=== PATIENT | male | born 1945 | race Hispanic/Latino ===

== ENCOUNTER 2018-06-14 18:43 | Emergency (ER) | payer MEDICARE, SELFPAY ==
[2018-06-14] VITALS (7 sets, daily range): BP systolic 142–159; BP diastolic 102–126; PULSE 90–118; RESP 11–32; TEMP 36.6; O2SAT 90–99
--- NOTE | 2018-06-14 18:55 | DI.CT.S_ITS ---
PROCEDURE: CT CHEST ABD PEL WO CON INDICATIONS: severe abdominal pain TECHNIQUE: After the administration of oral contrast, 5 mm thick sections acquired from the lung apices to the symphysis pubis. 5 mm thick coronal and sagittal reformats acquired, with additional 7 mm coronal MIP reformats through the lungs. For radiation dose reduction, the following was used: automated exposure control, adjustment of mA and/or kV according to patient size. COMPARISON: None. FINDINGS: Image quality: Excellent. CHEST: Lungs and pleura: No acute pulmonary opacities. No pleural effusions or pneumothorax. Central and peripheral airways are patent are normal in caliber. Mediastinum: Heart size is enlarged No pericardial effusion. No mediastinal adenopathy by CT size criteria. Thoracic aorta and central pulmonary arteries are normal in size. Esophagus is normal in caliber. No hiatal hernia. Chest wall: No axillary or supraclavicular adenopathy by size criteria. Thyroid gland is unremarkable. ABDOMEN: Solid organs: Liver is normal in size. Gallbladder has been removed. Pancreas is normal in contours. Spleen is normal in size. No adrenal nodules. Both kidneys are atrophic without hydronephrosis or nephrolithiasis. Peritoneum and bowel: Small and large bowel loops are nonobstructive. No free fluid or air. Significant colonic diverticula are present without surrounding inflammatory change. There is mild thickening of the sigmoid colon without surrounding inflammatory change. Nodes and vessels: No retroperitoneal or mesenteric adenopathy by size criteria. Aorta and inferior vena cava are normal in size. Aorta does demonstrate ectasia with prominent wall calcifications consistent with atherosclerosis. The common iliac arteries are prominent the largest on the left measuring 16 mm in transverse dimension. Miscellaneous: No ventral hernias. PELVIS: Genitourinary: Bladder wall thickness is normal. Prostate gland is enlarged. Miscellaneous: Fat-containing inguinal hernias are present. Bones: No suspicious bony lesions. No vertebral body compression fractures. IMPRESSION: 1. Significant colonic diverticula. There is mild appearance of thickening within the sigmoid colon which could be chronic as there is no associated inflammatory change. Early diverticulitis cannot be definitively excluded. 2. No nephro or ureterolithiasis. 3. Aortic atherosclerotic disease is present. Dictated by: Estefani Araya M.D. on 06/14/2018 at 21:45 Approved by: Estefani Araya M.D. on 06/14/2018 at 21:53
--- NOTE | 2018-06-14 19:08 | ED_ITS ---
HPI - Abdominal Pain General Chief Complaint: Abdominal Pain Stated Complaint: Lower abd pain Time Seen by Provider: 06/14/18 18:55 Source: patient and EMS Mode of arrival: EMS History of Present Illness HPI narrative: Patient is a 72-year-old male presenting with severe low lower abdominal pain and back pain. He is from a memory care [facility] and is a poor historian. But he apparently was eating a cheeseburger and fries when the pain started. He appears to be in AFib with RVR, he has a history of atrial fibrillation. He cannot find a comfortable position of complaining of pain on both sides of his back. It appears very uncomfortable. He was seen and admitted at [facility] who discharged on 06/09/2018 , for atrial fibrillation with RVR. According to records he has a history of CVA with a station an advanced dementia. MD complaint: abdominal pain and flank pain Related Data Home Medications Medication Instructions Recorded Confirmed amlodipine [Norvasc] 5 mg PO QDAY #0 10/21/16 aspirin [Ecotrin] 325 mg PO QDAY #0 02/05/18 calcitriol [Rocaltrol] 0.25 mcg PO QDAY #0 02/05/18 furosemide 20 mg PO QDAY #0 02/05/18 metoprolol succinate [Toprol XL] 100 mg PO QDAY #0 02/05/18 Previous Rx's Medication Instructions Recorded carvedilol [Coreg] 12.5 mg PO BID #60 tab 10/22/16 ferrous sulfate [Iron (ferrous 325 mg PO QDAY #30 tab 10/01/17 sulfate)] Allergies Allergy/AdvReac Type Severity Reaction Status Date / Time Penicillins [PENICILLINS] Allergy Severe I SWELL Verified 06/14/18 20:16 UP WITH RASHES, IT'S NASTY Review of Systems Review of Systems Limited due to patient's dementia Constitutional Denies chills, Denies fever(s), Denies lethargy and Denies weakness Cardiovascular Denies chest pain, Denies irregular heart rhythm, Denies lightheadedness, Denies palpitations, Denies dyspnea, Denies dyspnea on exertion and Denies orthopnea Respiratory Denies cough, Denies dyspnea, Denies dyspnea on exertion and Denies wheezing Musculoskeletal Denies back pain, Denies muscle weakness, Denies numbness and Denies tingling Integumentary/Breasts Denies pruritus, Denies erythema, Denies rash and Denies wounds Neurologic Denies numbness, Denies tingling and Denies weakness Endocrine Denies palpitations Allergic/Immunologic Denies wheezing PFSH Medical History Aphasia (Acute) Atrial fibrillation (Acute) CHF (congestive heart failure) (Acute) CVA (cerebral vascular accident) (Acute) Cardiomyopathy (Acute) Kidney disease (Acute) Surgical History Status post appendectomy (Acute) Status post cholecystectomy (Acute) Social History housing: assisted living facility Exam Initial Vital Signs Initial Vital Signs: Vital Signs Temperature 98 F 06/14/18 19:04 Pulse Rate 90 06/14/18 19:04 Respiratory Rate 32 H 06/14/18 19:04 Blood Pressure 149/126 H 06/14/18 19:04 Pulse Oximetry 90 L 06/14/18 19:04 GENERAL: Elderly male appears in severe pain awake and alert holding his lower abdomen. HEENT: Head atraumatic,EOMI, pupils reactive, neck is supple, no JVD CARDIOVASCULAR: Regular rate and rhythm without murmurs, rubs or gallops. RESPIRATORY: Breath sounds equal bilaterally, no wheezes rales or rhonchi. ABDOMEN: Soft, nontender. Normoactive bowel sounds all 4 quadrants. No guarding or rebound. Scars noted on abdomen : Mild bilateral CVA tenderness EXTREMITIES: Normal range of motion, no clubbing or edema. Neurovascularly intact NEUROLOGICAL: Awake and alert, difficult to understand at times. Moving all extremities SKIN: Warm, dry, no laceration, no petechiae, no rashes or lesions. Course Orders Ordered: ED Orders 06/14/18 18:55 CT chest abd pel wo con Stat EKG-12 Lead Stat 06/14/18 19:50 Complete Blood Count AUTO DIFF Stat Comprehensive Metabolic Panel Stat Lipase Stat Partial Thromboplastin Time Stat Prothrombin Time INR Stat Troponin & CK Cardiac Panel Stat 06/15/18 00:08 Troponin I Stat Discontinued Medications Carvedilol (Coreg) 12.5 mg PO NOW ONE Stop: 06/14/18 23:13 Last Admin: 06/15/18 00:19 Dose: 12.5 mg Sodium Chloride (Normal Saline 0.9%) 1,000 mls @ 150 mls/hr IV CONT EDGAR Last Infusion: 06/15/18 00:52 Dose: 0 mls/hr Infusion: 06/15/18 00:20 Dose: 0 mls/hr Admin: 06/14/18 19:16 Dose: 150 mls/hr Ketorolac Tromethamine (Toradol) 15 mg IV NOW ONE Stop: 06/14/18 18:56 Last Admin: 06/14/18 19:14 Dose: 15 mg Metoprolol Tartrate (Lopressor) 5 mg IV NOW ONE Stop: 06/14/18 22:42 Last Admin: 06/14/18 23:07 Dose: 5 mg Morphine Sulfate (Morphine) 2 mg IV NOW ONE Stop: 06/14/18 18:56 Last Admin: 06/14/18 19:14 Dose: 2 mg Morphine Sulfate (Morphine) 2 mg IV NOW ONE Stop: 06/14/18 20:45 Last Admin: 06/14/18 20:51 Dose: 2 mg Ondansetron HCl (Zofran) 4 mg IV NOW ONE Stop: 06/14/18 18:56 Last Admin: 06/14/18 19:14 Dose: 4 mg Vital Signs - 8 hr 06/14/18 20:04 06/14/18 21:55 06/14/18 22:07 Temperature Pulse Rate 118 H 93 H 101 H Respiratory Rate 11 L 26 H 20 Blood Pressure Blood Pressure [Right Arm] 159/111 H 142/118 H 151/102 H Pulse Oximetry 99 06/14/18 22:57 06/14/18 23:15 06/15/18 00:19 Temperature Pulse Rate 97 H 98 H 102 H Respiratory Rate 18 18 Blood Pressure 148/118 H Blood Pressure [Right Arm] 158/118 H 156/111 H Pulse Oximetry 96 06/15/18 02:13 Temperature 98.2 F Pulse Rate 101 H Respiratory Rate 21 Blood Pressure 135/96 H Blood Pressure [Right Arm] Pulse Oximetry 95 MDM - Abdominal Pain Medical Records Attestation: I reviewed the patient's medical records. Lab Data Attestation: I reviewed the patient's lab results. Result diagrams: 06/14/18 19:50 06/14/18 19:50 Lab Results 06/14/18 06/14/18 06/14/18 Range/Units 19:50 19:50 19:50 WBC 7.2 (4.5-11.0) X10^3/uL RBC 4.20 L (4.5-5.9) X10^6/uL Hgb 13.7 (13.5-17.5) g/dL Hct 40.9 L (41-53) % MCV 97.3 (80-100) fL MCH 32.6 (26-34) PG MCHC 33.5 (30-36) % RDW 16.3 H (11.6-14.8) % Plt Count 192 (150-400) X10^3/uL Neut % (Auto) 75.1 H (50-75) % Lymph % (Auto) 15.0 L (25-40) % [place] % (Auto) 8.0 (3-14) % Eos % (Auto) 1.1 L (2-4) % Baso % (Auto) 0.8 (0-2) % Neut # (Auto) 5400 (3182-4080) /uL PT 18.1 H (10.1-12.7) SECONDS INR 1.6 H (0.9-1.3) APTT 25 L (26.4-36.2) SECONDS Sodium 139 (137-145) mmol/L Potassium 5.1 (3.4-5.1) mmol/L Chloride 103 (98-107) mmol/L Carbon Dioxide 23 (22-32) mmol/L BUN 46 H (9-20) mg/dL Creatinine 2.20 H (0.66-1.25) mg/dL Estimated GFR 29.7 L (>60) mL/min BUN/Creatinine Ratio 20.9 (6-22) Glucose 137 H (80-110) mg/dL Calcium 9.6 (8.4-10.2) mg/dL Total Bilirubin 2.0 H (0.2-1.3) mg/dL AST 32 (17-59) IU/L ALT 33 (21-72) IU/L Alkaline Phosphatase 69 (38-126) U/L Total Creatine Kinase 46 L (55-170) U/L Troponin I 0.039 H (0.01-0.034) ng/mL Total Protein 7.2 (6.3-8.2) g/dL Albumin 4.0 (3.5-5.0) g/dL Globulin 3.2 (1.7-4.1) g/dL Albumin/Globulin Ratio 1.3 (1.0-2.8) Lipase 58 (23-300) U/L 06/15/18 Range/Units 00:08 WBC (4.5-11.0) X10^3/uL RBC (4.5-5.9) X10^6/uL Hgb (13.5-17.5) g/dL Hct (41-53) % MCV (80-100) fL MCH (26-34) PG MCHC (30-36) % RDW (11.6-14.8) % Plt Count (150-400) X10^3/uL Neut % (Auto) (50-75) % Lymph % (Auto) (25-40) % [place] % (Auto) (3-14) % Eos % (Auto) (2-4) % Baso % (Auto) (0-2) % Neut # (Auto) (0075-5865) /uL PT (10.1-12.7) SECONDS INR (0.9-1.3) APTT (26.4-36.2) SECONDS Sodium (137-145) mmol/L Potassium (3.4-5.1) mmol/L Chloride (98-107) mmol/L Carbon Dioxide (22-32) mmol/L BUN (9-20) mg/dL Creatinine (0.66-1.25) mg/dL Estimated GFR (>60) mL/min BUN/Creatinine Ratio (6-22) Glucose (80-110) mg/dL Calcium (8.4-10.2) mg/dL Total Bilirubin (0.2-1.3) mg/dL AST (17-59) IU/L ALT (21-72) IU/L Alkaline Phosphatase (38-126) U/L Total Creatine Kinase (55-170) U/L Troponin I 0.037 H (0.01-0.034) ng/mL Total Protein (6.3-8.2) g/dL Albumin (3.5-5.0) g/dL Globulin (1.7-4.1) g/dL Albumin/Globulin Ratio (1.0-2.8) Lipase (23-300) U/L Imaging Data CT chest abdomen pelvis no contrast: Radiologist's impression: PROCEDURE: CT CHEST ABD PEL WO CON INDICATIONS: severe abdominal pain TECHNIQUE: After the administration of oral contrast, 5 mm thick sections acquired from the lung apices to the symphysis pubis. 5 mm thick coronal and sagittal reformats acquired, with additional 7 mm coronal MIP reformats through the lungs. For radiation dose reduction, the following was used: automated exposure control, adjustment of mA and/or kV according to patient size. COMPARISON: None. FINDINGS: Image quality: Excellent. CHEST: Lungs and pleura: No acute pulmonary opacities. No pleural effusions or pneumothorax. Central and peripheral airways are patent are normal in caliber. Mediastinum: Heart size is enlarged No pericardial effusion. No mediastinal adenopathy by CT size criteria. Thoracic aorta and central pulmonary arteries are normal in size. Esophagus is normal in caliber. No hiatal hernia. Chest wall: No axillary or supraclavicular adenopathy by size criteria. Thyroid gland is unremarkable. ABDOMEN: Solid organs: Liver is normal in size. Gallbladder has been removed. Pancreas is normal in contours. Spleen is normal in size. No adrenal nodules. Both kidneys are atrophic without hydronephrosis or nephrolithiasis. Peritoneum and bowel: Small and large bowel loops are nonobstructive. No free fluid or air. Significant colonic diverticula are present without surrounding inflammatory change. There is mild thickening of the sigmoid colon without surrounding inflammatory change. Nodes and vessels: No retroperitoneal or mesenteric adenopathy by size criteria. Aorta and inferior vena cava are normal in size. Aorta does demonstrate ectasia with prominent wall calcifications consistent with atherosclerosis. The common iliac arteries are prominent the largest on the left measuring 16 mm in transverse dimension. Miscellaneous: No ventral hernias. PELVIS: Genitourinary: Bladder wall thickness is normal. Prostate gland is enlarged. Miscellaneous: Fat-containing inguinal hernias are present. Bones: No suspicious bony lesions. No vertebral body compression fractures. IMPRESSION: 1. Significant colonic diverticula. There is mild appearance of thickening within the sigmoid colon which could be chronic as there is no associated inflammatory change. Early diverticulitis cannot be definitively excluded. 2. No nephro or ureterolithiasis. 3. Aortic atherosclerotic disease is present. Dictated by: Estefani Araya M.D. on 06/14/2018 at 21:45 ECG Data Attestation: I personally reviewed and interpreted this ECG as follows: Prior ECG tracings: available for review Interpretation: AFib with RVR rate 136 similar to previous EKG MDM Narrative Medical decision making narrative: The patient initially appears quite uncomfortable he is in AFib with RVR. Concern for possible dissection. Though he does have a history of renal disease. I discussed with Dr. 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 At this time she recommends CT without contrast if there is large dissection should be able to see something. And if needed contrast afterwards or there is still high concern then we can do contrast. Patient's pain begins to get under control. He becomes more comfortable. I discussed his results with Radiology. He does have some calcifications in his aorta no obvious abnormality or sign of dissection. No kidney stones. The patient is given 1 dose of Lopressor and his nightly dose of Coreg to help control his AFib which does seem to help. Rate decreased between 90 and 100. Patient overall is calm and cooperative no longer seems to be in pain. Patient has had 2-troponins while in the ED. Attempted to call both of his daughters, the numbers in [employer] at this hospital are incorrect and no longer in service. However I did call and leave a message for Yuni her number was [phone] I called and spoke with staffing who is familiar with him at the [facility] and [place], he sounds as though he is at baseline mental status. No true abnormality or infection is found. Patient will be discharged back to the facility by BLS. Discharge Plan Departure Patient Disposition: Assisted Living Clinical Impression: Atrial fibrillation with RVR Discharge Date/Time: 06/15/18 02:18 Interventions: ED Discharge Assessment Last Done: 06/15/18 02:13 Instructions: Atrial Fibrillation Activity Restrictions/Additional Instructions: *You have been diagnosed with atrial fibrillation *What to do: Blood work CT scan EKGs are reassuring *Continue to take medications as directed *Follow up with your primary care provider in 2-3 days *Return to ER if you should have any new, worsening or concerning symptoms Prescriptions: No Action amlodipine [Norvasc] 5 MG tablet 5 mg PO QDAY Qty: 0 RF: 0 carvedilol [Coreg] 25 MG tablet 12.5 mg PO BID Qty: 60 RF: 0 ferrous sulfate [Iron (ferrous sulfate)] 325 MG tablet 325 mg PO QDAY Qty: 30 RF: 0 aspirin [Ecotrin] 325 MG tablet,delayed release (DR/EC) 325 mg PO QDAY Qty: 0 RF: 0 calcitriol [Rocaltrol] 0.25 MCG capsule 0.25 mcg PO QDAY Qty: 0 RF: 0 metoprolol succinate [Toprol XL] 100 MG tablet extended release 24 hr 100 mg PO QDAY Qty: 0 RF: 0 furosemide 20 MG tablet 20 mg PO QDAY Qty: 0 RF: 0
[2018-06-14] MEDS: KETOROLAC 60 MG/2 ML VIAL 15 MG IV (19:14)
[2018-06-14] MEDS: MORPHINE 2 MG/ML INJ IV ×2 (19:14→20:51)
[2018-06-14] MEDS: ONDANSETRON 4 MG/2 ML INJ IV (19:14)
[2018-06-14] MEDS: SODIUM CHLORIDE 0.9% 1,000 ML 150 ML IV (19:16)
[2018-06-14 20:17] LABS: Add Manual Diff / Slide Review NO; Basophils Percent Auto 0.8 % (0-2); Eosinophils Percent Auto 1.1 % (2-4); Hematocrit 40.9 % (41-53); Hemoglobin 13.7 g/dL (13.5-17.5); Mean Corpuscular HGB Conc 33.5 % (30-36); Mean Corpuscular Hemoglobin 32.6 PG (26-34); Mean Corpuscular Volume 97.3 fL (80-100); Neutrophils Absolute Auto 5400 /uL (3000-5900); Neutrophils Percent Auto 75.1 % (50-75); Platelet Count 192 X10^3/uL (150-400); Red Cell Distribution Width 16.3 % (11.6-14.8); White Blood Cell Count 7.2 X10^3/uL (4.5-11.0)
[2018-06-14 20:26] LABS: INR 1.6 (0.9-1.3); Prothrombin Time 18.1 SECONDS (10.1-12.7)
[2018-06-14 20:29] LABS: PTT Partial Thromboplastin Tim 25 SECONDS (26.4-36.2)
--- NOTE | 2018-06-14 20:56 | PC.NURSE ---
Pt noted with increasing pain, rocking in bed. Pt took my hand to show me where pain is and indicated left blank, upper back, and chest and left arm. Dr Vieyra notified, at bedside to reassess. Pt medicated for pain with 2 mg Morphine IV per order and given warm blanket to back with some relief. Lab in to redraw blood that hemolyzed. Bilateral BP's done with similar values.
[2018-06-14 20:57] LABS: Alanine Aminotransferase 33 IU/L (21-72); Albumin Globulin Ratio 1.3 (1.0-2.8); Alkaline Phosphatase 69 U/L (38-126); Aspartate Aminotransferase 32 IU/L (17-59); BUN Creatinine Ratio 20.9 (6-22); Blood Urea Nitrogen 46 mg/dL (9-20); Calcium 9.6 mg/dL (8.4-10.2); Carbon Dioxide 23 mmol/L (22-32); Chloride 103 mmol/L (98-107); Creatine Kinase 46 U/L (55-170); Estimated Glomerular Filt Rate 29.7 mL/min (>60); Globulin 3.2 g/dL (1.7-4.1); Glucose 137 mg/dL (80-110); HEMOLYSIS < 15 (0-50); Lipase 58 U/L (23-300); Potassium 5.1 mmol/L (3.4-5.1); Sodium 139 mmol/L (137-145); Total Protein 7.2 g/dL (6.3-8.2)
[2018-06-14 21:09] LABS: Troponin I 0.039 ng/mL (0.01-0.034)
[2018-06-14] MEDS: METOPROLOL TARTRATE 5 MG/5 ML INJ IV (23:07)
[2018-06-15 00:19] VITALS: BP 148/118; PULSE 102
[2018-06-15] MEDS: CARVEDILOL 12.5 MG TABLET PO (00:19)
[2018-06-15 00:47] LABS: Troponin I 0.037 ng/mL (0.01-0.034)
[2018-06-15 02:13] VITALS: BP 135/96; PULSE 101; RESP 21; TEMP 36.8; O2SAT 95
== END 2018-06-15 02:18 ==
PROVIDERS: Emergency Provider Emergency Medicine
DX: I48.91 Unspecified atrial fibrillation (principal)
CPT/HCPCS: 36415; 36591; 71250; 74176; 80053; 82550; 82553; 83690; 84484; 85025; 85610; 85730; 93005; 93010; 96361; 96374; 96375; 96376; 99283; 99285; 99291; 99292; J1885; J2270; J2405

== ENCOUNTER 2018-06-22 14:05 | Inpatient (IN) | payer MEDICARE, SELFPAY ==
[2018-06-22] VITALS (10 sets, daily range): BP systolic 138–158; BP diastolic 87–116; PULSE 88–124; RESP 7–25; TEMP 35.9–36.4; O2SAT 92–100
--- NOTE | 2018-06-22 14:20 | ED.CHESTPAIN ---
HPI - Chest Pain General Chief Complaint: Chest Pain Stated Complaint: Chest and back pain 1-2 weeks Time Seen by Provider: 06/22/18 14:08 Source: EMS Mode of arrival: EMS Limitations: language barrier and altered mental status History of Present Illness HPI narrative: 72-year-old male brought in by EMS from his primary care doctor's office. Initially unsure as to why the patient was here. He has problems expressing himself. There was reports of dementia. I was able to talk with the patient's primary doctor who states that he was sent to the primary doctor's office this morning after the patient expressed concern over chest pain and shortness of breath. The primary doctor obtained an EKG which showed AFib with RVR. Patient does have a history of atrial fibrillation. Primary doctor also states that the patient was complaining of chest pain to him as well. Primary doctor states that he does not think that the patient's altered mental status is worsening dementia. He states that the patient does have problems expressing himself since the angulation is his 2nd language. Primary doctor states that the patient can understanding wished very well. Normally the patient's daughter is with him to translate. Upon my return to the room I asked the patient yes and no questions. He did state that he was having chest pain and shortness of breath. Unsure as to how long this has been going on. Related Data Home Medications Medication Instructions Recorded Confirmed amlodipine [Norvasc] 5 mg PO QDAY #0 10/21/16 06/22/18 aspirin [Ecotrin] 325 mg PO QDAY #0 02/05/18 06/22/18 calcitriol [Rocaltrol] 0.25 mcg PO QDAY #0 02/05/18 06/22/18 Swish And Spit 10 ml PO QID 06/22/18 06/22/18 acetaminophen 650 mg PO Q4H PRN 06/22/18 06/22/18 carvedilol phosphate 20 mg PO DAILY 06/22/18 06/22/18 cholecalciferol (vitamin D3) 2,000 unit PO DAILY 06/22/18 06/22/18 [Vitamin D3] furosemide 20 mg DAILY 06/22/18 06/22/18 losartan 50 mg PO DAILY 06/22/18 06/22/18 olanzapine 2.5 mg TRANSLINGUAL DAILY 06/22/18 06/22/18 Allergies Allergy/AdvReac Type Severity Reaction Status Date / Time Penicillins [PENICILLINS] Allergy Severe I SWELL Verified 06/14/18 20:16 UP WITH RASHES, IT'S NASTY Review of Systems Review of Systems unobtainable due to mental condition Constitutional Denies fever(s) and Denies headache(s) ENT Ears, Nose, Mouth, and Throat: Denies headache(s) Cardiovascular Reports chest pain and Reports dyspnea Respiratory Reports dyspnea Gastrointestinal Gastrointestinal: Denies abdominal pain Musculoskeletal Denies arthralgias Integumentary/Breasts Denies rash Neurologic Denies headache(s) Hematologic/Lymphatic Denies easy bleeding [facility] Medical History Aphasia (Acute) Atrial fibrillation (Acute) CHF (congestive heart failure) (Acute) CVA (cerebral vascular accident) (Acute) Cardiomyopathy (Acute) Kidney disease (Acute) Surgical History Status post appendectomy (Acute) Status post cholecystectomy (Acute) Social History housing: assisted living facility Exam Initial Vital Signs Initial Vital Signs: Vital Signs Temperature 96.9 F L 06/22/18 14:12 Pulse Rate 114 H 06/22/18 14:12 Respiratory Rate 14 06/22/18 14:12 Blood Pressure 156/114 H 06/22/18 14:12 Const General: cooperative and No acute distress Orientation: alert and awake HENOK Head: normal to inspection and normocephalic Resp Effort & Inspection: no cough, no grunting, not labored, no retractions, no stridor, tachypneic and no use of accessory muscles Auscultation: clear to auscultation bilaterally Cardio Rate: tachycardic Rhythm: abnormal rhythm irregularly irregular Heart Sounds: no murmurs GI Inspection: non-distended Palpation: soft Skin Lesions: no lesions Rashes: no rashes Neuro General: alert and awake Extrem General: normal to inspection, capillary refill normal and edema Psych Appearance: grossly normal and well kempt Course Orders Ordered: ED Orders 06/22/18 14:56 XR chest 1V Stat 06/22/18 15:22 Arterial Blood Gas Stat 08/21/18 15:43 B Type Natriuretic Peptide Stat Basic Metabolic Panel Stat Complete Blood Count AUTO DIFF Stat Troponin I Stat 06/22/18 18:11 Education, smoking cessation ONGOING 06/22/18 18:17 Consult to Occupational Therapy Evaluate & Treat Consult to Physical Therapy Evaluate & Treat Consult to Makeup Instructor Routine 06/23/18 Basic Metabolic Panel Routine Complete Blood Count AUTO DIFF Routine Lipid Panel Routine Magnesium Routine EKG-12 Lead Routine Acetaminophen (Tylenol) 650 mg PO Q6HR PRN PRN Reason: As Needed for Fever/Mild Pain Acetaminophen (Tylenol) 650 mg PO Q4H PRN PRN Reason: fever >101.5 or pain Hydrocodone Bitart/Acetaminophen ([place] 5/325) 1 tab PO Q4HR PRN PRN Reason: Pain, Moderate (4-6) Aspirin (Aspirin Ec) 325 mg PO QDAY [facility] Bisacodyl (Dulcolax) 10 mg NM DAILY PRN PRN Reason: Constipation Calcitriol (Rocaltrol) 0.25 mcg PO QDAY [facility] Docusate Sodium (Colace) 100 mg PO BID [facility] Heparin Sodium (Porcine) (Heparin) 5,000 unit SUBCUT BID [facility] Losartan Potassium (Cozaar) 50 mg PO DAILY [facility] Morphine Sulfate (Morphine) 2 mg IV Q4HR PRN PRN Reason: Pain, Moderate (4-6) Naloxone HCl (Narcan) 0.2 mg IV Q2MIN PRN PRN Reason: Opiate Reversal Non-Formulary Medication (Carvedilol Phosphate [Carvedilol Phosphate]) 20 mg PO DAILY [facility] Olanzapine (Zyprexa Zydis) 2.5 mg PO DAILY [facility] Pantoprazole Sodium (Protonix) 20 mg PO 0600 [facility] Promethazine HCl (Phenadoz) 12.5 mg NM Q6HR PRN PRN Reason: Nausea And Vomiting Vitamin D (Vitamin D3) 2,000 unit PO DAILY [facility] Discontinued Medications Furosemide (Lasix) 40 mg IV NOW ONE Stop: 06/22/18 16:18 Last Admin: 06/22/18 16:28 Dose: 40 mg Furosemide (Lasix) 20 mg IV BID [facility] Metoprolol Tartrate (Lopressor) 5 mg IV NOW ONE Stop: 06/22/18 14:47 Last Admin: 06/22/18 15:24 Dose: 5 mg Vital Signs - 8 hr 06/22/18 14:12 06/22/18 14:30 06/22/18 15:30 Temperature 96.9 F L Pulse Rate 114 H 124 H 88 Respiratory Rate 14 25 H 7 L Blood Pressure 156/114 H Blood Pressure [Left Arm] 149/116 H 138/113 H Pulse Oximetry 100 06/22/18 16:43 06/22/18 17:00 Temperature Pulse Rate 100 H 96 H Respiratory Rate 23 15 Blood Pressure Blood Pressure [Left Arm] 158/97 H 149/104 H Pulse Oximetry 97 96 MDM - Chest Pain Medical Records Data Attestation: I reviewed the patient's medical records. Lab Data Attestation: I reviewed the patient's lab results. Result diagrams: 06/22/18 15:43 06/22/18 15:43 Lab Results 06/22/18 06/22/18 06/22/18 Range/Units 15:22 15:43 15:43 WBC 7.2 (4.5-11.0) X10^3/uL RBC 4.30 L (4.5-5.9) X10^6/uL Hgb 13.8 (13.5-17.5) g/dL Hct 42.0 (41-53) % MCV 97.6 (80-100) fL MCH 32.1 (26-34) PG MCHC 32.9 (30-36) % RDW 16.3 H (11.6-14.8) % Plt Count 201 (150-400) X10^3/uL Neut % (Auto) 70.3 (50-75) % Lymph % (Auto) 17.3 L (25-40) % [place] % (Auto) 10.5 (3-14) % Eos % (Auto) 0.9 L (2-4) % Baso % (Auto) 1.0 (0-2) % Neut # (Auto) 5100 (2075-7661) /uL ABG pH 7.42 (7.35-7.45) ABG pCO2 27.1 L (35-45) mmHg ABG pO2 62 L (80-105) mmHg ABG HCO3 18 L (23-27) mmol/L ABG Total CO2 18 L (23-27) mmol/L ABG O2 Saturation 92 L (95-100) % ABG Base Excess -7.0 L (-2-3) mmol/L FiO2 0.21 Sodium 139 (137-145) mmol/L Potassium 5.3 H (3.4-5.1) mmol/L Chloride 106 (98-107) mmol/L Carbon Dioxide 22 (22-32) mmol/L BUN 44 H (9-20) mg/dL Creatinine 2.20 H (0.66-1.25) mg/dL Estimated GFR 29.7 L (>60) mL/min BUN/Creatinine Ratio 20.0 (6-22) Glucose 113 H (80-110) mg/dL Calcium 9.0 (8.4-10.2) mg/dL Troponin I 0.042 H (0.01-0.034) ng/mL B-Natriuretic Peptide 2280.0 H (<100) Imaging Data Chest x-ray: Radiologist's impression: [address] [address] XRay Report Signed Patient: Davian Alcocer LMR#: [id number] : 6Acct:[id number] Age/Sex: 72 / MDate of Service: 06/22/18 Loc: ED Accession Number: [id number] Procedure: XR chest 1V Ordering Provider: Brent Burnett D.O. PROCEDURE: XR CHEST 1V INDICATIONS: SOB TECHNIQUE: One view of the chest was acquired. COMPARISON: [facility], , XR CHEST 1 VIEW, 05/12/2018, 18:02. FINDINGS: Surgical changes and devices: None. Lungs and pleura: The perihilar lung markings are increased compared to the prior examination with interstitial prominence and fullness of the hilar regions. No lobar consolidation, large effusion, or pneumothorax is evident. Mediastinum: Mediastinal contours appear normal. The heart is mildly enlarged. There is aortic atherosclerosis. Bones and chest wall: No suspicious bony lesions. Overlying soft tissues appear unremarkable. IMPRESSION: Cardiomegaly with moderate vascular congestion is concerning for possible developing pulmonary edema. Please correlate clinically. Dictated by: Josue Cervantes M.D. on 06/22/2018 at 14:51 Approved by: Josue Cervantes M.D. on 06/22/2018 at 14:5 ECG Data Attestation: I personally reviewed and interpreted this ECG as follows: Prior ECG tracings: not available for review Interpretation: Atrial fibrillation Ventricular rate of 112 Left axis deviation QRS 134 milliseconds Normal QTC Nonspecific ST T wave changes MDM Narrative Medical decision making narrative: Patient arrive tachypneic. Lungs were clear however did appear to be somewhat struggling to breathe. Had a difficult time obtaining an O2 saturation. Attempted multiple finger ear and forehead probes. Apparently this also happened the last time he was here in the emergency department. An ABG was obtained which did show a low O2 saturation 92%. I did place the patient on 2 L of O2 nasal cannula which he did express improved to symptoms significantly. His chest x-ray is concerning for fluid overload. Does have an elevated BNP. Does have a slightly elevated troponin which could be is atrial fibrillation. Patient was given Lasix here in the emergency department. Discussed the case with the hospitalist to admit the patient for further evaluation and treatment Discharge Plan Departure Patient Disposition: Admitted as Observation Clinical Impression: CHF (congestive heart failure), Atrial fibrillation with RVR, Hypoxia Discharge Date/Time: 06/22/18 17:57 Interventions: ED Discharge Assessment Last Done: 06/22/18 17:57 Admit Date/Time: 06/22/18 16:50 Admit Provider: Nikhil Carlos
--- NOTE | 2018-06-22 14:56 | DI.RAD.S_ITS ---
PROCEDURE: XR CHEST 1V INDICATIONS: SOB TECHNIQUE: One view of the chest was acquired. COMPARISON: [facility], [place], XR CHEST 1 VIEW, 05/12/2018, 18:02. FINDINGS: Surgical changes and devices: None. Lungs and pleura: The perihilar lung markings are increased compared to the prior examination with interstitial prominence and fullness of the hilar regions. No lobar consolidation, large effusion, or pneumothorax is evident. Mediastinum: Mediastinal contours appear normal. The heart is mildly enlarged. There is aortic atherosclerosis. Bones and chest wall: No suspicious bony lesions. Overlying soft tissues appear unremarkable. IMPRESSION: Cardiomegaly with moderate vascular congestion is concerning for possible developing pulmonary edema. Please correlate clinically. Dictated by: Josue Cervantes M.D. on 06/22/2018 at 14:51 Approved by: Josue Cervantes M.D. on 06/22/2018 at 14:52
[2018-06-22] MEDS: METOPROLOL TARTRATE 5 MG/5 ML INJ IV (15:24)
[2018-06-22 15:31] LABS: pH ABG 7.42 (7.35-7.45)
[2018-06-22 15:32] LABS: HCO3 ABG 18 mmol/L (23-27); Oxygen Saturation ABG 92 % (95-100); PCO2 ABG 27.1 mmHg (35-45); PO2 ABG 62 mmHg (80-105); TCO2 ABG 18 mmol/L (23-27)
[2018-06-22 15:33] LABS: Fractionated Inspired Oxygen 0.21
[2018-06-22 15:57] LABS: Add Manual Diff / Slide Review NO; Eosinophils Percent Auto 0.9 % (2-4); Hemoglobin 13.8 g/dL (13.5-17.5); Lymphocytes Percent Auto 17.3 % (25-40); Mean Corpuscular HGB Conc 32.9 % (30-36); Mean Corpuscular Hemoglobin 32.1 PG (26-34); Mean Corpuscular Volume 97.6 fL (80-100); Monocytes Percent Auto 10.5 % (3-14); Neutrophils Absolute Auto 5100 /uL (3000-5900); Neutrophils Percent Auto 70.3 % (50-75); Platelet Count 201 X10^3/uL (150-400); Red Cell Distribution Width 16.3 % (11.6-14.8); White Blood Cell Count 7.2 X10^3/uL (4.5-11.0)
[2018-06-22 16:06] LABS: Blood Urea Nitrogen 44 mg/dL (9-20); Carbon Dioxide 22 mmol/L (22-32); Chloride 106 mmol/L (98-107); Estimated Glomerular Filt Rate 29.7 mL/min (>60); Glucose 113 mg/dL (80-110); HEMOLYSIS < 15 (0-50); Potassium 5.3 mmol/L (3.4-5.1); Sodium 139 mmol/L (137-145)
[2018-06-22 16:18] LABS: Troponin I 0.042 ng/mL (0.01-0.034)
[2018-06-22] MEDS: FUROSEMIDE 40 MG/4 ML VIAL IV (16:28)
--- NOTE | 2018-06-22 20:57 | P.HP_ITS ---
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 He is alert but appears to be oriented only to himself. Patient's vital signs were mildly hypertensive, with no tachypnea, ventricular rate up to 140 which was brought down by bolus of IV metoprolol administered by ED physician, mild hypoxemia on room area. Physical exam was significant for irregular irregular rhythm with uncontrolled ventricular rate, signs of pulmonary congestion on auscultation and imaging studies conducted. Clinical lab severe acute on chronic renal failure with BUN of 44 and creatinine of 2.2, mild potassium elevation of 5.3. CBC with no leukocytosis, normal hemoglobin, hematocrit and platelet counts. BNP was elevated in excess of 2200. Mild troponin elevation, most probably secondary to demand ischemia, was noted. Better symptom control was established on boluses of IV metoprolol bringing heart rate down to 100 per minute. Patient was given IV diuretics with good clinical response. The patient is getting admitted to acute care unit for further monitoring by hospitalist team. Patient History Medical History Diverticulosis (Acute) PVD (peripheral vascular disease) (Acute) Vascular dementia in remission (Acute) Aphasia (Acute) Atrial fibrillation (Acute) CHF (congestive heart failure) (Acute) CVA (cerebral vascular accident) (Acute) Cardiomyopathy (Acute) Kidney disease (Acute) Surgical History Status post appendectomy (Acute) Status post cholecystectomy (Acute) Family & Social History Family History: Reviewed 06/22/18 by Nikhil Carlos MD Social History: household members caregiver Prior Living Arrangements Assisted Living Safety & Behavioral: Feels Safe in Current Yes Environment Suicidal Ideation Description None Suicide Plan Description No Plan Tobacco & Substance use: Smoking Status Never smoker alcohol intake never Substance Use Type does not use Meds Home Medications Medication Instructions Recorded Confirmed Type amlodipine [Norvasc] 5 mg PO QDAY #0 10/21/16 06/22/18 History aspirin [Ecotrin] 325 mg PO QDAY #0 02/05/18 06/22/18 History calcitriol [Rocaltrol] 0.25 mcg PO QDAY #0 02/05/18 06/22/18 History Swish And Spit 10 ml PO QID 06/22/18 06/22/18 History acetaminophen 650 mg PO Q4H PRN 06/22/18 06/22/18 History carvedilol phosphate 20 mg PO DAILY 06/22/18 06/22/18 History cholecalciferol (vitamin D3) 2,000 unit PO DAILY 06/22/18 06/22/18 History [Vitamin D3] furosemide 20 mg DAILY 06/22/18 06/22/18 History losartan 50 mg PO DAILY 06/22/18 06/22/18 History olanzapine 2.5 mg TRANSLINGUAL DAILY 06/22/18 06/22/18 History Allergies Allergy/AdvReac Type Severity Reaction Status Date / Time Penicillins [PENICILLINS] Allergy Severe I SWELL Verified 06/14/18 20:16 UP WITH RASHES, IT'S NASTY Review of Systems Review of Systems unobtainable due to mental condition Exam Vital Signs (past 8 hours): - 06/22/18 14:12 06/22/18 14:30 06/22/18 15:30 Temperature 96.9 F L Pulse Rate 114 H 124 H 88 Respiratory Rate 14 25 H 7 L Blood Pressure 156/114 H Blood Pressure [Left Arm] 149/116 H 138/113 H Pulse Oximetry 100 06/22/18 16:43 06/22/18 17:00 06/22/18 18:11 Temperature 97.6 F Pulse Rate 100 H 96 H 107 H Respiratory Rate 23 15 20 Blood Pressure 142/90 H Blood Pressure [Left Arm] 158/97 H 149/104 H Pulse Oximetry 97 96 92 06/22/18 18:28 06/22/18 18:30 Temperature Pulse Rate Respiratory Rate Blood Pressure Blood Pressure [Left Arm] Pulse Oximetry 92 92 Oxygen Delivery Method Nasal Cannula Oxygen Flow Rate 2 Narrative Exam Narrative: Constitutional: Well-nourished well-developed male appearing male a.m. mild distress. He is alert but appears to be chronically confused. HEENT: Head is atraumatic and normocephalic, patient is edentulous, moist oral mucosa, otherwise unremarkable. Eyes: PERRLA, EOMI Neck: Supple, no lymphadenopathy, no bruits on auscultation of carotid arteries , no jugular venous distention Cardiovascular: Irregularly irregular with controlled ventricular rate Pulmonary: Distant breath sounds, decreased at the bases, faint inspiratory crackles over lower lungs detected. Abdomen: Soft, nontender, nondistended, with old postoperative scar over the midline to Extremities: Warm to touch, trace edema Skin: no rash, no skin lesions Neurological: No focal neurological symptoms from cranial nerves 2-12 detected. Patient is grossly neurologically intact. Objective Imaging Chest x-ray: Radiologist's impression: IMPRESSION: Cardiomegaly with moderate vascular congestion is concerning for possible developing pulmonary edema. Please correlate clinically. Dictated by: Josue Cervantes M.D. on 06/22/2018 at 14:51 Approved by: Josue Cervantes M.D. on 06/22/2018 at 14:52 Labs Result Diagrams: 06/22/18 15:43 06/22/18 15:43 Labs: Laboratory Results - last 24 hr 06/22/18 06/22/18 06/22/18 15:22 15:43 15:43 WBC 7.2 RBC 4.30 L Hgb 13.8 Hct 42.0 MCV 97.6 MCH 32.1 MCHC 32.9 RDW 16.3 H Plt Count 201 Neut % (Auto) 70.3 Lymph % (Auto) 17.3 L [place] % (Auto) 10.5 Eos % (Auto) 0.9 L Baso % (Auto) 1.0 Neut # (Auto) 5100 ABG pH 7.42 ABG pCO2 27.1 L ABG pO2 62 L ABG HCO3 18 L ABG Total CO2 18 L ABG O2 Saturation 92 L ABG Base Excess -7.0 L FiO2 0.21 Sodium 139 Potassium 5.3 H Chloride 106 Carbon Dioxide 22 BUN 44 H Creatinine 2.20 H Estimated GFR 29.7 L BUN/Creatinine Ratio 20.0 Glucose 113 H Calcium 9.0 Troponin I 0.042 H B-Natriuretic Peptide 2280.0 H Assessment & Plan Plan: Assessment/Plan Narrative: 1. Acute on chronic hypoxic respiratory failure: Multifactorial, secondary to atrial fibrillation with rapid ventricular response and resultant CHF exacerbation. Presented to ED with uncontrolled ventricular rate in the range of 120-140 which was brought down by boluses of IV metoprolol. Patient's hypoxemia on room air complex by ABG. Colon cancer exam is distant breath sounds and crackles over lower lungs. Imaging studies conducted is evidence of mild pulmonary vascular congestion. Patient has good response to medication started for rate control and IV diuresis. Continue to treat underlying medical problems. 2. Atrial fibrillation with rapid ventricular response: As above. Remains on telemetry , currently with acceptable ventricular rate control. Continue chronic therapy with Coreg at outpatient dose. Patient on therapy with aspirin 325 mg p.o. daily most probably given his dementia status and fall risk. 3. Congestive heart failure, acute on chronic, diastolic: with good clinical response to diuresis with IV lasix, change to PO 4. Dementia, vascular type: Remains pleasantly confused, no signs of delirium or psychosis. Continue chronic therapy with Olanzapine. 5. 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 Follow up with repeat labs. 6. GI prophylaxis: PPIs p.o.. 7. DVT prophylaxis: Heparin SC 8. Code status: By default patient is a full code. Time Spent With Patient Time with patient: 25 - 35 minutes Quality VTE Deep Vein Thrombosis/Pulmonary Embolism Present on Admission: No
--- NOTE | 2018-06-22 21:07 | PC.NURSE ---
Addendum entered by Enriqueta Husain R.N. 06/22/18 22:58: 2245- pt moved to room 206 for better visual. mild sundowning occuring. bed alarm on. Original Note: 1814- Pt arrived to room 204 from ED via stretcher. Hx Dementia and resides at [facility] [place]. A/O to self and daughters, not wearing dentures (up/low), right hand SL, telemetry in place with A-fib HR-113-120 sustaining, scar to ABD RMQ pt unable to give reason. 94% 2L nc, LS clear, received lasix 20mg in ED. 1PA to BRP to void, bed alarm on.
[2018-06-22] MEDS: HEPARIN 5,000 UNIT/ML VIAL 5000 UNIT SUBCUT (21:59)
[2018-06-22] MEDS: DOCUSATE 100 MG CAPSULE PO (21:59)
[2018-06-23] VITALS (8 sets, daily range): BP systolic 108–147; BP diastolic 73–114; PULSE 51–111; RESP 18–28; TEMP 35.9–36.7; O2SAT 94–100
--- NOTE | 2018-06-23 | DI.US.S_ITS ---
PROCEDURE: US RENAL COMPLETE INDICATIONS: Acute on chronic renal failure TECHNIQUE: Real-time scanning was performed of the kidneys and bladder, with image documentation. COMPARISON: None. FINDINGS: Kidneys: Kidneys are normal in size. Right kidney measures 12.4 cm long; left kidney measures 9.2 cm long. Right renal cortical thickness is 1.7 cm; left renal cortical thickness is 1.7 cm. Renal cortical echotexture is normal. No hydronephrosis or nephrolithiasis. No suspicious solid mass lesions. Bladder: Urinary bladder decompressed and suboptimally visualized. Miscellaneous: No free pelvic fluid. IMPRESSION: Normal sonographic appearance the kidneys bilaterally. Dictated by: Steve MCCANN Interpreted: Mayelin Keen MD on 06/23/2018 at 13:55 Approved by: Mayelin Keen MD, PhD on 06/23/2018 at 14:37
[2018-06-23] MEDS: SODIUM CHLORIDE 0.9% FLUSH 10 ML IV ×3 (00:34→21:56)
[2018-06-23] MEDS: HYDROCODONE/ACET 5/325 TABLET 1 TAB PO (02:41)
[2018-06-23] MEDS: PANTOPRAZOLE 20 MG TABLET PO (06:03)
[2018-06-23 06:26] LABS: Add Manual Diff / Slide Review NO; Basophils Percent Auto 1.1 % (0-2); Eosinophils Percent Auto 1.1 % (2-4); Hematocrit 39.9 % (41-53); Hemoglobin 13.5 g/dL (13.5-17.5); Lymphocytes Percent Auto 18.1 % (25-40); Mean Corpuscular Hemoglobin 32.4 PG (26-34); Mean Corpuscular Volume 95.4 fL (80-100); Monocytes Percent Auto 8.7 % (3-14); Neutrophils Absolute Auto 5100 /uL (3000-5900); Platelet Count 197 X10^3/uL (150-400); Red Blood Cell Count 4.18 X10^6/uL (4.5-5.9); Red Cell Distribution Width 16.4 % (11.6-14.8); White Blood Cell Count 7.2 X10^3/uL (4.5-11.0)
[2018-06-23 06:28] LABS: BUN Creatinine Ratio 22.2 (6-22); Blood Urea Nitrogen 51 mg/dL (9-20); Carbon Dioxide 22 mmol/L (22-32); Chloride 105 mmol/L (98-107); Cholesterol 119 mg/dL (140-199); Estimated Glomerular Filt Rate 28.2 mL/min (>60); Glucose 106 mg/dL (80-110); HDL Cholesterol 29 mg/dL (40-60); HEMOLYSIS 37 (0-50); LDL Cholesterol Calculated 72 mg/dL (<100); Magnesium 2.3 mg/dL (1.6-2.3); Potassium 4.9 mmol/L (3.4-5.1); Sodium 136 mmol/L (137-145); Triglycerides 88 mg/dL (35-150)
[2018-06-23] MEDS: LOSARTAN 50 MG TABLET PO (08:12)
[2018-06-23] MEDS: FUROSEMIDE 20 MG TABLET PO (08:12)
[2018-06-23] MEDS: CALCITRIOL 0.25 MCG CAPSULE PO (08:13)
[2018-06-23] MEDS: ASPIRIN EC 325 MG TABLET PO (08:13)
[2018-06-23] MEDS: DOCUSATE 100 MG CAPSULE PO ×2 (08:13→21:19)
[2018-06-23] MEDS: OLANZapine 2.5 MG TABLET PO (08:13)
[2018-06-23] MEDS: CHOLECALCIFEROL (VITAMIN D3) 1,000 UNIT TABLET 2000 UNIT PO (08:13)
[2018-06-23] MEDS: CARVEDILOL 12.5 MG TABLET PO ×2 (08:57→21:19)
[2018-06-23] MEDS: FUROSEMIDE 40 MG/4 ML VIAL IV (08:57)
[2018-06-23] MEDS: HEPARIN 5,000 UNIT/ML VIAL 5000 UNIT SUBCUT ×2 (08:58→21:19)
--- NOTE | 2018-06-23 09:40 | PT.IIE ---
Surgical History (Last Reviewed 06/22/18 @ 20:56 by Nikhil Carlos MD) Status post appendectomy (Acute) Status post cholecystectomy (Acute) Medical History (Last Updated 06/22/18 @ 21:02 by Nikhil Carlos MD) Diverticulosis (Acute) PVD (peripheral vascular disease) (Acute) Vascular dementia in remission (Acute) Aphasia (Acute) Atrial fibrillation (Acute) CHF (congestive heart failure) (Acute) CVA (cerebral vascular accident) (Acute) Cardiomyopathy (Acute) Kidney disease (Acute) Physical Therapy Inpatient Evaluation/Re-Eval M1 PT/OT-IP Prior Functional Status Start: 06/23/18 11:47 Freq: NEEDED Status: Active Protocol: Document 06/23/18 09:40 AB (Rec: 06/23/18 12:15 AB [id number]) Medical Review Prior Functional Status Medical History Reviewed Yes Communication with confusion Mobility and Gait per [facility] : pt is modified independent with ambulation without AD Activities of Daily Living and IADL's able to toilet and shower mod I Social History Household Members caregiver Living Arrangements Assisted Living Additional Social History Comment Pt lives at [facility] in [place] [id number] PT-IP Current Condition Start: 06/23/18 11:47 Freq: NEEDED Status: Active Protocol: Document 06/23/18 09:40 AB (Rec: 06/23/18 12:15 AB [id number]) Physical Therapy Current Condition Current Condition Evaluation Date 06/23/18 Treatment Diagnosis CHF; A-fib with RVR; difficulty in walking Onset Date 06/22/18 Precautions Other Precautions falls M3 PT-IP Subjective Start: 06/23/18 11:47 Freq: NEEDED Status: Active Protocol: Document 06/23/18 09:40 AB (Rec: 06/23/18 12:15 AB [id number]) Subjective Physical Therapy Visit Type Type Initial Evaluation Visit Start Time 09:40 Visit Stop Time 10:07 Total Visit Minutes 27 Number of ORDER DISPATCHER Visits 0 Therapy Pain Assessment Pain Present Pain Present Denied Pain M4 PT-IP Mobility and Gait Start: 06/23/18 11:47 Freq: NEEDED Status: Active Protocol: Document 06/23/18 09:40 AB (Rec: 06/23/18 12:15 AB [id number]) PT-Bed Mobility Assessment Supine to Sit Supine to Sit Independent Sit to Supine Sit to Supine Independent PT-Transfer Assessment Sit to and From Stand Sit to and from Stand Standby Assistance Equipment Transfer Assistive Device None Gait Belt Gait Assessment Gait Gait Assistance Required: Standby Assistance Contact Guard Assist Distance (Feet) (feet) 30 Able to Maintain Weight Bearing Status Yes During Gait Assistive Devices Assistive Device None Gait Belt Gait Deviations General Gait Pattern Antalgic Factors Limiting Gait Function Factors Limiting Gait Function Difficulty Following Directions Poor Safety Awareness PT-Balance Assessment Sitting Balance and Reactions Static Sitting Balance Ability Good Dynamic Sitting Balance Ability Good Standing Balance and Reactions Static Standing Balance Ability Good Dynamic Standing Balance Ability Fair Device Used without AD M5 PT-IP Objective Assessments Start: 06/23/18 11:47 Freq: NEEDED Status: Active Protocol: Document 06/23/18 09:40 AB (Rec: 06/23/18 12:15 AB [id number]) Orientation Orientation/Cognition Level of Alertness Confusional State Orientation Name Safety Awareness Decreased Safety Awareness Memory Description Short Term Impaired Care Analyst Impaired Gross Range of Motion Lower Extremity ROM Assessment Within Functional Limits Strength Lower Extremity Strength Assessment Within Functional Limits Muscle Tone Muscle Tone WNL Yes M6 PT-IP Treatment Start: 06/23/18 11:47 Freq: NEEDED Status: Active Protocol: Document 06/23/18 09:40 AB (Rec: 06/23/18 12:15 AB [id number]) Physical Therapy Treatment Education Education Provided Safety M7 PT-IP Assessment and Plan Start: 06/23/18 11:47 Freq: NEEDED Status: Active Protocol: Document 06/23/18 09:40 AB (Rec: 06/23/18 12:15 AB [id number]) PT Summary Assessment and Plan Potential Rehabilitation Potential Fair Status of Condition at Evaluation Stable Summary Impairments Balance Coordination Cognition Transfers Gait Activity Tolerance Assessment Summary pt requiring SBA to CGA with mobility with cues for safety. pt with decrease cognitive level due to dementia affecting safety and function. pt may go back to memory care center when medically stable. Goals Bed Mobility Goal Independent Transfer Goal Independent Gait Goal Independent Gait Distance 200 Days to Meet Goals 2 Frequency of Treatment Frequency Of Treatment Once a Day Treatment Plan Physical Therapy Treatment Plan Bed Mobility Training Transfer Training Gait Training Therapeutic Exercise Balance Retraining Discharge Planning Neuromuscular Re-ed Coordination Retraining Manual Therapy Recommendations To Nursing Amount of Assist Needed 1 Person Assist Discharge Recommendations PT Discharge Recommendations Home with 25/05 Assist Other Discharge Recommendations back to [facility]
--- NOTE | 2018-06-23 10:17 | PC.NURSE ---
Addendum entered by Amara Arnett R.N. 06/23/18 11:09: RENAL US - initially pt is uncooperative, after reassurance and bedside assist, did agree for US to be done. Original Note: AM NOTE - pt awoke, sat up dangle position, leans over tray table, sob at rest and with speech, when asked questions states I just woke up, speech is clear and pt laughs but speaks randomly and unrelated to most questions, no pain, 1-2+ pedal, hr irreg 110, bp now 147/114, Dr. Mackenzie contacted and new orders rec'd, added 40mg x 1 dose lasix in addition to the po, discussed coreg med ordered not carried by pharmacy and new order rec'd, pt has poor appetite and disliked any breakfast items, did accept a boost and sipped, later am, echo completed, phys therapy in and mobilized room, refusing chair, ret to bed w/alarm set.
[2018-06-23 13:27] LABS: Bacteria Urine None Seen; RBC Urine None Seen (0-5/HPF); WBC Urine None Seen (0-5/HPF)
--- NOTE | 2018-06-23 13:49 | DI.ECHO.S_ITS ---
Echocardiogram Report + + :Name: SANDRA ADAMS Study Date: 06/23/2018 Height: 73 in : :Hospital Weight: 210 lb : : Gender: Male BSA: 2.2 m2 : :: 1945 Age: 72 yrs BP: 147/114 mmHg: :Reason For Study: Congestive Heart Failure : :Ordering Physician: [place] : :Hospitalist Performed By: Evelyn Martinez : :Referring: GIULIANO MARIA : + + Interpretation Summary The left ventricle is moderate-severely dilated. Left ventricular wall thickness is mild-moderately increased. The ejection fraction is estimated to be 15-20%. Assessment of diastolic parameters indicates a restrictive filling pattern of the left ventricle consistent with significantly elevated filling pressures. There is moderate aortic regurgitation. The left coronary cusp is relatively immobile. There is moderate to severe mitral regurgitation. Worse compared to prior study. The interatrial septum bows toward right atrium consistent with elevated left atrial pressure. The ascending aorta is mild-moderately enlarged. The right ventricular systolic pressure is estimated at 49 mmHg assuming a right atrial pressure of 8 mm Hg. -Overall this study shows severe LV dysfunction and increased filling pressures. The EF is about 10-15%. The stroke volume is severely reduced, consistent with a severely decreased cardiac output. These findings show worsening hemodynamics compared to prior echo on 12/12/2016. Procedure: A two-dimensional transthoracic echocardiogram with color flow and Doppler was performed. The study quality was technically good. Comparison is made with the echocardiogram of 12/12/2016. The patient was in atrial fibrillation with heart rates between 72-118 bpm during the exam. Left Ventricle: The left ventricle is moderate-severely dilated. Left ventricular wall thickness is mild-moderately increased. There is no thrombus. The ejection fraction is estimated to be 15-20%. Assessment of diastolic parameters indicates a restrictive filling pattern of the left ventricle consistent with significantly elevated filling pressures. Right Ventricle: The right ventricle is mildly dilated. Right ventricular systolic function is mildly reduced. Atria: Both atria are severely dilated. There is no Doppler evidence for an interatrial shunt. The interatrial septum bows toward right atrium consistent with elevated left atrial pressure. Mitral Valve: There is mild mitral annular calcification. The mitral valve leaflets appear mildly thickened, but open well. There is moderate to severe mitral regurgitation. Aortic Valve: The aortic valve is trileaflet. The aortic valve is mildly calcified. The left coronary cusp is relatively immobile. There is moderate aortic regurgitation. Tricuspid Valve: The tricuspid valve is normal. There is mild tricuspid regurgitation. The right ventricular systolic pressure is estimated at 49 mmHg assuming a right atrial pressure of 8 mm Hg. Pulmonic Valve: The pulmonic valve is not well seen, but is grossly normal. There is a trace or physiologic amount of pulmonic regurgitation. Great Vessels: The aortic root is normal size. The ascending aorta is mildmoderately enlarged. The IVC is dilated (diameter is greater than 2.1 cm) yet it collapses greater than 50% with a sniff. This suggests a right atrial pressure of 8 mm Hg. Pericardium/ Pleura There is no pericardial effusion. MMode/2D Measurements & Calculations LVIDd: 6.5 cm LVOT diam: 2.3 cm LVIDs: 6.2 cm Ao root diam: 4.0 cm FS: 3.7 % Aortic Jxn: 3.0 cm EPSS: 2.1 cm asc Aorta Diam: 4.1 cm IVSd: 1.3 cm LVPWd: 1.5 cm LV bennett. diameter/BSA (cm/m^2): 2.9 LV sys. diameter/BSA (cm/m^2): 2.8 LA A2 area: 39.1 cm2 RA long axis: 6.8 cm LA A4 area: 33.9 cm2 RA area: 31.2 cm2 LA length (vol): 7.2 cm RA vol: 121.6 ml LA vol: 157.2 ml RA : 55.3 ml/m2 LA vol index: 71.6 ml/m2 IVC diam: 2.2 cm RVD1 (basal): 4.4 cm LVAd ap4: 47.8 cm2 RVD2 (mid): 2.8 cm LVAs ap4: 46.5 cm2 TAPSE: 1.6 cm LVLs ap4: 10.5 cm NEGRITA (plan): 2.6 cm2 Doppler Measurements & Calculations Ao V2 max: 128.8 cm/sec LVOT Max Minh: 56.1 cm/sec Ao V2 mean: 84.6 cm/sec LV V1 max P.3 mmHg Ao max P.7 mmHg LV V1 VTI: 7.5 cm Ao mean P.4 mmHg NEGRITA(I,D): 2.0 cm2 Ao V2 VTI: 15.8 cm NEGRITA(V,D): 1.8 cm2 sev ratio: 0.47 NEGRITA indexed to BSA (cm^2/m^2): 0.89 AI P1/2t: 788.8 msec AI dec slope: 180.6 cm/sec2 MV E max minh: 125.9 cm/sec TR max minh: 321.8 cm/sec Med Peak E' Minh: 4.8 cm/sec TR max P.4 mmHg E/E' med: 26.0 PA V2 max: 44.6 cm/sec Lat Peak E' Minh: 5.7 cm/sec PA V2 mean: 28.4 cm/sec E/E' lat: 22.1 PA mean P.40 mmHg E/e' average: 24.1 PA Accel Time: 0.06 sec MV P1/2t: 37.2 msec MR ERO: 0.22 cm2 MV P1/2t max minh: 126.0 cm/sec MR flow rate: 135.5 cm3/sec MVA(P1/2t): 5.9 cm2 MR PISA radius: 0.70 cm _ Electronically signed by: Rajendra Khan M.D. on Reading Physician:06/23/2018 01:49 PM
[2018-06-23 13:50] LABS: Appearance Urine UA CLEAR; Bilirubin Urine UA NEGATIVE (NEGATIVE); Color Urine UA YELLOW; Glucose Urine UA NEGATIVE (Normal); Ketones Urine UA NEGATIVE (NEGATIVE); Leukocyte Esterase Urine UA NEGATIVE (NEGATIVE); Nitrite Urine UA Negative (Negative); Occult Blood Urine UA NEGATIVE (Negative); Protein Urine UA TRACE (Negative); Specific Gravity Urine UA 1.015 (1.000-1.035); Urobilinogen Urine UA 0.2 E.U./dL (0.2)
--- NOTE | 2018-06-23 13:53 | OT.IP.EVAL ---
Past Medical History (Last Updated 06/22/18 @ 21:02 by Nikhil Carlos MD) Diverticulosis (Acute) PVD (peripheral vascular disease) (Acute) Vascular dementia in remission (Acute) Aphasia (Acute) Atrial fibrillation (Acute) CHF (congestive heart failure) (Acute) CVA (cerebral vascular accident) (Acute) Cardiomyopathy (Acute) Kidney disease (Acute) Surgical History (Last Reviewed 06/22/18 @ 20:56 by Nikhil aCrlos MD) Status post appendectomy (Acute) Status post cholecystectomy (Acute) Occupational Therapy Inpatient Evaluation/Re-Eval M1 PT/OT-IP Prior Functional Status Start: 06/23/18 11:47 Freq: NEEDED Status: Active Protocol: Document 06/23/18 13:53 PJM (Rec: 06/23/18 15:10 PJM [id number]) Medical Review Prior Functional Status Medical History Reviewed Yes Communication with confusion Mobility and Gait per [facility] memory care : pt is modified independent with ambulation without AD Activities of Daily Living and IADL's able to complete dressing, toileting and showering with supervision Social History Living Arrangements Assisted Living Number of Stairs To Enter/Railing? 0 Employment Status Retired Additional Social History Comment Pt ambulates without a device M2 OT-IP Current Condition Start: 06/23/18 14:58 Freq: Status: Active Protocol: Document 06/23/18 13:53 PJM (Rec: 06/23/18 15:10 PJM [id number]) Occupational Therapy Current Condition Current Condition Evaluation Date 06/23/18 Treatment Diagnosis assess self care after admit fro CHF, AFIB w/RVR, respiratory failure Diagnosis Onset Date 06/22/18 Post Operative Precautions Other Precautions fall risk, confusion, bed/ chair alarm M3 OT- IP Subjective and Pain Start: 06/23/18 14:58 Freq: Status: Active Protocol: Document 06/23/18 13:53 PJM (Rec: 06/23/18 15:10 PJM [id number]) OT- Subjective Occupational Therapy Visit Type Type Initial Evaluation Visit Start Time 13:35 Visit Stop Time 13:53 Total Visit Minutes 18 Notes Pt prefers dark room with shades drawn Occupational Therapy Visit Comments Patient Comments conversation confused Patient/Caregiver Goals pt unable to verbalize goal due to confusion OT Pain Assessment Pain When Pain Assessed After Treatment Pain Present Pain Present Denied Pain M4 OT- IP ADL's Start: 06/23/18 14:58 Freq: Status: Active Protocol: Document 06/23/18 13:53 PJM (Rec: 06/23/18 15:10 PJM [id number]) OT [id number] General Evaluation Self-Feeding Ability Independent Comments OT Self-Feeding Comments afer set up due to unfamiliar containers OT ADL-Grooming General Evaluation Grooming Ability Standby Assistance Areas Needing Assistance Retrieving/Set-up of Grooming Items Face Washing OT ADL-Dressing General Eval Upper Body Dressing Ability Standby Assistance Lower Body Dressing Ability Standby Assistance Comments OT Dressing Comments Pt SBA to don socks seated EOB . OT ADL-Toileting General Evaluation Toileting Ability Standby Assistance Comments OT Toileting Comments verbal cues form nursing to go to bathroom M5 OT- IP IADL's Start: 06/23/18 14:58 Freq: Status: Active Protocol: Document 06/23/18 13:53 PJM (Rec: 06/23/18 15:10 PJ [id number]) OT-Instrumental Activities of Daily Living Deficits IADL Deficits Identified Deficits Home Safety Awareness Awareness of Need for Assistance at Home Decreased Awareness Ability to Problem Solve Emergency Unable to Problem Solve Situations Medication Management Medication Management Caregiver Administers Money Management Money Management Caregiver Provides Assistance Meal Preparation Meal Preparation Caregiver Provides Assist Rigger Third Rigger Third Caregiver Provides Assist Driving Driving Caregiver Provides Assist M6 OT- IP Functional Cognition Start: 06/23/18 14:58 Freq: Status: Active Protocol: Document 06/23/18 13:53 PJM (Rec: 06/23/18 15:10 PJ [id number]) Cognitive Factors Limiting Selfcare Function Cognitive Ability Level of Alertness Confusional State Patient Orientation Name Attention Span Ability Unable to Focus Ability to Follow Commands Able to Follow One Step Commands Memory Description Short Term Impaired Box Blank Machine Feeder Impaired Safety Awareness Underestimates Need for Assistance Problem Solving Ability Unable to Identify Errors Executive Function Ability Unable to Switch Focus Abstract Thinking Ability Unable to Draw Logical Conclusions Unable to Be Adaptable in Thinking Cognitive Comments Cognitive Assessment Comments Pt has hx of dementia. Pt oriented to self only. Conversation confused or tangential. Mildly irritable with unfamiliar hospital environment. OT- Vision and Hearing OT- Hearing Assessment OT- Hearing Assessment WFL OT- Vision Assessment Vision Assessment Comments Pt unable to read clock due to confusion. M7 OT- IP Mobility and Balance Start: 06/23/18 14:58 Freq: Status: Active Protocol: Document 06/23/18 13:53 PJM (Rec: 06/23/18 15:10 PJM [id number]) OT- Bed Mobility Assessment Rolling Level of Assistance Independent Supine to Sit Supine to Sit Assist Independent Sit to Supine Sit to Supine Assist Independent Scooting Scooting to Edge of Bed Independent OT-Transfer Assessment Sit to and From Stand Sit to and from Stand Standby Assistance Transfers Transfer Ability Standby Assistance Technique Transfer Destination Chair Transfer Technique Stand Step Pivot Devices Transfer Assistive Devices None Comments Mobility Comments pt does not want therapist to assist or provide contact guard OT- Gait Assessment Comments Gait Ability Comments See P.T. note OT- Balance Assessment Sitting Balance and Reactions Static Sitting Balance Ability Good Dynamic Sitting Balance Ability Good Standing Balance and Reactions Static Standing Balance Ability Good M8 OT- IP Objective Assessments Start: 06/23/18 14:58 Freq: Status: Active Protocol: Document 06/23/18 13:53 PJM (Rec: 06/23/18 15:10 PJM [id number]) OT Gross Range of Motion Upper Extremity Range of Motion Assessment Within Functional Limits OT Strength Upper Extremity Strength Assessment Within Functional Limits OT- Coordination Assessment Comments Coordination Comments WFL for self care OT-Muscle Tone Assessment Muscle Tone WNL Yes OT Sensation Assessment Comments Summary Comments Unable to formally assess due to confusion Edema Edema Absent Edema Comments in BUE's M9 OT- IP Assessment and Plan Start: 06/23/18 14:58 Freq: Status: Active Protocol: Document 06/23/18 13:53 PJM (Rec: 06/23/18 15:10 PJM [id number]) OT Summary Assessment and Plan Potential Analytic Complexity at Evaluation Low Summary Assessment Summary Low complexity OT assessment completed. Pt appears to be at his baseline level of self care function as noted above. No OT goals identified for this admission. Frequency of Treatment Frequency Of Treatment Discharge Discharge Recommendations Other Discharge Recommendations Return to [facility] when medically stable
--- NOTE | 2018-06-23 14:03 | CM.DANOTE ---
Discharge Planning/Care Management DCP: assessment: case received and met with pt early this morning. Introduced self and role. Pt appeared groggy and confused. Pt is a 72 year old male who lies at [facility]. (of note: initial nursing assessment states pt lives at [facility] but after research [facility] is now confirmed). [phone] and fax [phone] Pt admitted yesterday late afternoon to care of the hospitalist team. Went from his facility to the physician's office and then per EMS to . PCP: [facility] Payer: Medicare UR NAPOLEON Rodriguez confirms INPT admission status. PT and OT are ordered. Conferred with NAPOLEON Maloney who noted POA Eri Alcocer had called this morning for an update: [phone] Attempted to call Eri and left brief message: VM with no identifiers. Received a call next from daughter Poly Hurt who works as the DNS at the [facility]. personal cell: [phone]. She requested information re the POC and initial clinical was faxed to the facility by SANDRA. Dr. Dunn is updated on all info found and is following up with the POA and with Poly. P: in process. CM/DCP team will be following to assist with d/c issues and options as these arise and will keep family and the facility updated. Anticipate pt will likely return to his facility home at d/c but will have to work closely with DNS Poly and what will be needed to facilitate this. CM Discharge Assessment Start: 06/23/18 13:55 Freq: Status: Active Protocol: Document 06/23/18 13:56 ITV (Rec: 06/23/18 14:02 ITV [id number]) Discharge Planning Assessment Advance Directives? No: [facility] paperwork indicates: DNR. Advance Directives on File No: Dr. Dunn is aware and confirming the code status History Provided By Patient Family Member Medical Record Prior Living Arrangements Assisted Living Type of transporation used prior to Relies on Others admit Facility Name Admitted From: Other Willing to Return to Facility? Yes: lives at [facility] facility: connor Pang is the DNS Independent with ADL's No Is patient alert and oriented? No Caregiver for Another No Whiteboard Updated in Patient Room with Yes name and ext. # of Steel Fixer Comment added contact info for both daughters. Eri is the POA. ..Poly is the DNS of facility where pt resides Review Status In Process Next Review Type Continued Stay Review Discharge Planning/Care Management CM Discharge Assessment Start: 06/23/18 13:55 Freq: Status: Active Protocol: Document 06/23/18 13:56 ITV (Rec: 06/23/18 14:02 ITV [id number]) Discharge Planning Assessment Advance Directives? No: [facility] paperwork indicates: DNR. Advance Directives on File No: Dr. Dunn is aware and confirming the code status History Provided By Patient Family Member Medical Record Prior Living Arrangements Assisted Living Type of transporation used prior to Relies on Others admit Facility Name Admitted From: Other Willing to Return to Facility? Yes: lives at [facility]: daughter Poly is the DNS Independent with ADL's No Is patient alert and oriented? No Caregiver for Another No Whiteboard Updated in Patient Room with Yes name and ext. # of Steel Fixer Comment added contact infor for both daughters. Eri is the POA. ..Poly is the DNS of facility where pt resides Review Status In Process Next Review Type Continued Stay Review
--- NOTE | 2018-06-23 14:17 | PM.EVENT ---
Date Patient Seen: 06/23/18 Time Patient Seen: 14:18 spoke to daughter Poly Who confirms he is DNR status ALSO NOT TO TELL THE PATIENT RE DISCHARGE UNTIL THE DAUGHTERS ARE HERE HE TENDS TO LEAVE THE HOSPITAL BY HIMSELF
[2018-06-23 14:22] LABS: Squamous Epithelial Cell Urine 0-1 /HPF
[2018-06-23 14:23] LABS: Culture Indicated Urine Cult Not Indicated
--- NOTE | 2018-06-23 15:46 | PC.NURSE ---
1530- Pt dangleing at bedside, alarm on. 96% RACHINO clear. R hand SL. Denies pain, nausea, and SOB at this time. able to answer simple questions, however maintains some word salad. Call light in reach.
--- NOTE | 2018-06-23 16:13 | P.PN_ITS ---
Subjective Date Patient Seen: 06/23/18 Time Patient Seen: 16:12 Interval history: Admitted yesterday sent from the care home by the PCP for a history of worsening of the heart failure patient is confused male complains of not wanting to eat because not liking the taste of the food here denies any chest pain or difficulty breathing Spoke to his daughter who is the director of strategic sourcing services at the [facility] [place] she confirms that this status is DNR Renal ultrasound was negative for any evidence of hydronephrosis Exam Vital Signs (past 8 hours): - 06/23/18 11:00 06/23/18 15:37 Temperature 97.9 F 98.0 F Pulse Rate 76 51 L Respiratory Rate 24 18 Blood Pressure 108/73 122/78 H Pulse Oximetry 95 96 Oxygen Delivery Method Room Air Oxygen Flow Rate 2 Const General: well developed Orientation: alert and awake [facility] Head: normal to inspection, normocephalic and atraumatic Ears: hearing grossly normal bilaterally Nose: external nose normal Face and sinus: normal facial exam Eyes General: appearance normal, both eyes and all related structures Eyelids: eyelids normal Conjunctivae: conjunctivae normal Sclera: sclerae normal Pupils: PERRL Resp Effort & Inspection: normal respiratory effort and able to speak in complete sentences Auscultation: clear to auscultation bilaterally Cardio Rhythm: abnormal rhythm irregularly irregular Heart Sounds: S1 normal and S2 normal Other: RYAN LE EDEMA PRESENT GI Inspection: normal to inspection Palpation: soft and no hepatosplenomegaly Skin General: no rashes or lesions noted Neuro General: alert and awake Speech: speech normal Motor: muscle tone normal throughout Extrem Other: RYAN PITTING EDEMA Psych Speech and Movement: restless Objective Labs Result Diagrams: 06/23/18 05:51 06/23/18 05:51 Labs: Laboratory Results - last 24 hr 06/22/18 06/22/18 06/23/18 15:43 15:43 05:51 WBC 7.2 RBC 4.18 L Hgb 13.5 Hct 39.9 L MCV 95.4 MCH 32.4 MCHC 34.0 RDW 16.4 H Plt Count 197 Neut % (Auto) 71.0 Lymph % (Auto) 18.1 L [place] % (Auto) 8.7 Eos % (Auto) 1.1 L Baso % (Auto) 1.1 Neut # (Auto) 5100 Sodium Potassium Chloride Carbon Dioxide BUN Creatinine Estimated GFR BUN/Creatinine Ratio Glucose Calcium Magnesium Troponin I 0.042 H B-Natriuretic Peptide 2280.0 H 2230.0 H Triglycerides Cholesterol LDL Cholesterol, Calc HDL Cholesterol Urine Color Urine Appearance Urine pH Ur Specific [place] Urine Protein Urine Glucose (UA) Urine Ketones Urine Occult Blood Urine Nitrate Urine Bilirubin Urine Urobilinogen Ur Leukocyte Esterase Urine RBC Urine WBC Ur Squamous Epith Cells Urine Bacteria Ur Culture Indicated? Micro UA Comment 06/23/18 06/23/18 05:51 13:17 WBC RBC Hgb Hct MCV MCH MCHC RDW Plt Count Neut % (Auto) Lymph % (Auto) [place] % (Auto) Eos % (Auto) Baso % (Auto) Neut # (Auto) Sodium 136 L Potassium 4.9 Chloride 105 Carbon Dioxide 22 BUN 51 H Creatinine 2.30 H Estimated GFR 28.2 L BUN/Creatinine Ratio 22.2 H Glucose 106 Calcium 9.0 Magnesium 2.3 Troponin I B-Natriuretic Peptide Triglycerides 88 Cholesterol 119 L LDL Cholesterol, Calc 72 HDL Cholesterol 29 L Urine Color Yellow Urine Appearance Clear Urine pH 5.0 Ur Specific [place] 1.015 Urine Protein Trace H Urine Glucose (UA) Negative Urine Ketones Negative Urine Occult Blood Negative Urine Nitrate Negative Urine Bilirubin Negative Urine Urobilinogen 0.2 Ur Leukocyte Esterase Negative Urine RBC None seen Urine WBC None seen Ur Squamous Epith Cells 0-1 /hpf Urine Bacteria None seen Ur Culture Indicated? Cult not indicated Micro UA Comment Not Reportable Assessment & Plan Plan: Assessment/Plan Narrative: 1. WORSENING OF THE HEART FAILURE ECHOCARDIOGRAM REPORT IS PENDING RESPONSE TO IV DIURETICS IF NOT GIVEN IN THE ER IF REPEATED ANOTHER IV NOW 2. ACUTE KIDNEY INJURY ON TOP OF CKD CREATININE IS 2.3 TODAY WILL CONTINUE TO MONITOR THAT AND IS BEING ON IV DIURETICS 3. ACUTE CONFUSIONAL STATE ON TOP OF THE CHRONIC DEMENTIA HE ACTUALLY LIVES IN AN MEMORY CENTER Time Spent With Patient Time with patient: 25 - 35 minutes Quality VTE Deep Vein Thrombosis/Pulmonary Embolism Present on Admission: No
[2018-06-24] VITALS (10 sets, daily range): BP systolic 127–148; BP diastolic 76–109; PULSE 74–99; RESP 16–20; TEMP 35.6–36.8; O2SAT 93–100
[2018-06-24] MEDS: PANTOPRAZOLE 20 MG TABLET PO (08:55)
[2018-06-24] MEDS: CARVEDILOL 12.5 MG TABLET PO (08:56)
[2018-06-24] MEDS: ASPIRIN EC 325 MG TABLET PO (08:56)
[2018-06-24] MEDS: ACETAMINOPHEN 325 MG TABLET 650 MG PO (08:56)
--- NOTE | 2018-06-24 10:21 | CM.DPC ---
DCP Cont: Spoke to patient's daughter, Poly. Stated that patient was going to get IV Lasix, but had been refusing medications. Discussed possibility of longterm. Daughter stated that if he was going to go to a facility, would choose [facility]. Patient would have to stay another day to qualify, and daughter stated that they would be able to pick him up and take him there. Let her know, would keep her updated. Spoke to Sloane at [facility] who stated that they have openings. Let her know that we would send information, notes, etc. Hospitalist stated that he will stay another day to see how he does with IV lasix. P: Potential [facility] tomorrow to [facility]. Alis Escobar RN/Electric Meter Repairer Apprentice
[2018-06-24] MEDS: FUROSEMIDE 20 MG/2 ML VIAL IV (11:14)
[2018-06-24] MEDS: OLANZapine 2.5 MG TABLET PO (11:14)
[2018-06-24] MEDS: LOSARTAN 50 MG TABLET PO (11:51)
[2018-06-24] MEDS: SODIUM CHLORIDE 0.9% FLUSH 10 ML IV (11:52)
--- NOTE | 2018-06-24 12:09 | PT.IPTN ---
Physical Therapy Treatment Note M2 PT-IP Current Condition Start: 06/23/18 11:47 Freq: NEEDED Status: Active Protocol: Document 06/23/18 09:40 AB (Rec: 06/23/18 12:15 AB [id number]) Physical Therapy Current Condition Current Condition Evaluation Date 06/23/18 Treatment Diagnosis CHF; A-fib with RVR; difficulty in walking Onset Date 06/22/18 Precautions Other Precautions falls M3 PT-IP Subjective Start: 06/23/18 11:47 Freq: NEEDED Status: Active Protocol: Document 06/24/18 12:07 GGD (Rec: 06/24/18 12:09 GGD [id number]) Subjective Physical Therapy Visit Type Notes Pt refusing to walk, RN states to hold due to high BP. Recommendations To Nursing Amount of Assist Needed 1 Person Assist Discharge Recommendations PT Discharge Recommendations Home with 25/05 Assist Other Discharge Recommendations back to [facility]
--- NOTE | 2018-06-24 13:35 | PM.PN.1 ---
Subjective Date Patient Seen: 06/24/18 Time Patient Seen: 09:35 Interval history: This gentleman admitted from the [facility] with worsening shortness of breath leg edema worsening renal function is very confused and has been refusing his oral medications His heart failure is improved with the IV diuretics leg swelling is also improving Further history from the patient is very limited due to his mental status Exam Vital Signs (past 8 hours): - 06/24/18 06:00 06/24/18 08:00 06/24/18 09:24 Temperature 96.1 F L Pulse Rate 87 Respiratory Rate 17 Blood Pressure 133/76 H 134/84 H Pulse Oximetry 100 100 93 06/24/18 09:25 06/24/18 12:00 Temperature Pulse Rate 89 Respiratory Rate 18 Blood Pressure 127/109 H Pulse Oximetry 95 97 Oxygen Delivery Method Room Air Oxygen Flow Rate 0 Const General: cooperative, healthy appearing and comfortable Orientation: alert and awake [place] Head: normal to inspection, normocephalic and atraumatic Nose: external nose normal Face and sinus: normal facial exam Eyes General: appearance normal, both eyes and all related structures Eyelids: eyelids normal Conjunctivae: conjunctivae normal Sclera: sclerae normal Pupils: PERRL EOM: EOM intact bilaterally Resp Effort & Inspection: normal respiratory effort, able to speak in complete sentences and no use of accessory muscles Auscultation: clear to auscultation bilaterally Cardio Heart Sounds: S1 normal and S2 normal GI Inspection: normal to inspection Palpation: soft and no hepatosplenomegaly Skin General: no rashes or lesions noted Neuro General: alert, awake and no meningeal signs Cranial Nerves: CN's II-XI intact bilaterally Motor: muscle tone normal throughout Sensory Exam: no sensory deficits noted Extrem Other: melissa LE EDEMA pitting decreasing Psych Appearance: disheveled Speech and Movement: restless Objective Labs Result Diagrams: 06/23/18 05:51 06/23/18 05:51 Labs: Laboratory Results - last 24 hr 06/23/18 13:17 Urine Color Yellow Urine Appearance Clear Urine pH 5.0 Ur Specific [place] 1.015 Urine Protein Trace H Urine Glucose (UA) Negative Urine Ketones Negative Urine Occult Blood Negative Urine Nitrate Negative Urine Bilirubin Negative Urine Urobilinogen 0.2 Ur Leukocyte Esterase Negative Urine RBC None seen Urine WBC None seen Ur Squamous Epith Cells 0-1 /hpf Urine Bacteria None seen Ur Culture Indicated? Cult not indicated Micro UA Comment Not Reportable Assessment & Plan Plan: Assessment/Plan Narrative: CONGESTIVE HEART FAILURE IMPROVING ACUTE KIDNEY INJURY ON TOP OF CKD STAGE IV DEMENTIA IS MORE OR LESS STABLE AND WILL CONTINUE THE IV DIURETICS AND MONITOR THE KIDNEY FUNCTIONS Time Spent With Patient Time with patient: 25 - 35 minutes Quality VTE Deep Vein Thrombosis/Pulmonary Embolism Present on Admission: No
--- NOTE | 2018-06-24 13:40 | P.PN_ITS ---
Subjective Date Patient Seen: 06/24/18 Time Patient Seen: 09:35 Interval history: This gentleman admitted from the [facility] with worsening shortness of breath leg edema worsening renal function is very confused and has been refusing his oral medications His heart failure is improved with the IV diuretics leg swelling is also improving Further history from the patient is very limited due to his mental status Exam Vital Signs (past 8 hours): - 06/24/18 06:00 06/24/18 08:00 06/24/18 09:24 Temperature 96.1 F L Pulse Rate 87 Respiratory Rate 17 Blood Pressure 133/76 H 134/84 H Pulse Oximetry 100 100 93 06/24/18 09:25 06/24/18 12:00 Temperature Pulse Rate 89 Respiratory Rate 18 Blood Pressure 127/109 H Pulse Oximetry 95 97 Oxygen Delivery Method Room Air Oxygen Flow Rate 0 Const General: cooperative, healthy appearing and comfortable Orientation: alert and awake HENFL Head: normal to inspection, normocephalic and atraumatic Nose: external nose normal Face and sinus: normal facial exam Eyes General: appearance normal, both eyes and all related structures Eyelids: eyelids normal Conjunctivae: conjunctivae normal Sclera: sclerae normal Pupils: PERRL EOM: EOM intact bilaterally Resp Effort & Inspection: normal respiratory effort, able to speak in complete sentences and no use of accessory muscles Auscultation: clear to auscultation bilaterally Cardio Heart Sounds: S1 normal and S2 normal GI Inspection: normal to inspection Palpation: soft and no hepatosplenomegaly Skin General: no rashes or lesions noted Neuro General: alert, awake and no meningeal signs Cranial Nerves: CN's II-XI intact bilaterally Motor: muscle tone normal throughout Sensory Exam: no sensory deficits noted Extrem Other: melissa LE EDEMA pitting decreasing Psych Appearance: disheveled Speech and Movement: restless Objective Labs Result Diagrams: 06/23/18 05:51 06/23/18 05:51 Labs: Laboratory Results - last 24 hr 06/23/18 13:17 Urine Color Yellow Urine Appearance Clear Urine pH 5.0 Ur Specific [place] 1.015 Urine Protein Trace H Urine Glucose (UA) Negative Urine Ketones Negative Urine Occult Blood Negative Urine Nitrate Negative Urine Bilirubin Negative Urine Urobilinogen 0.2 Ur Leukocyte Esterase Negative Urine RBC None seen Urine WBC None seen Ur Squamous Epith Cells 0-1 /hpf Urine Bacteria None seen Ur Culture Indicated? Cult not indicated Micro UA Comment Not Reportable Assessment & Plan Plan: Assessment/Plan Narrative: CONGESTIVE HEART FAILURE IMPROVING ACUTE KIDNEY INJURY ON TOP OF CKD STAGE IV DEMENTIA IS MORE OR LESS STABLE AND WILL CONTINUE THE IV DIURETICS AND MONITOR THE KIDNEY FUNCTIONS Time Spent With Patient Time with patient: 25 - 35 minutes Quality VTE Deep Vein Thrombosis/Pulmonary Embolism Present on Admission: No
--- NOTE | 2018-06-24 15:33 | PT.IPTN ---
Physical Therapy Treatment Note M2 PT-IP Current Condition Start: 06/23/18 11:47 Freq: NEEDED Status: Active Protocol: Document 06/23/18 09:40 AB (Rec: 06/23/18 12:15 AB [id number]) Physical Therapy Current Condition Current Condition Evaluation Date 06/23/18 Treatment Diagnosis CHF; A-fib with RVR; difficulty in walking Onset Date 06/22/18 Precautions Other Precautions falls M3 PT-IP Subjective Start: 06/23/18 11:47 Freq: NEEDED Status: Active Protocol: Document 06/24/18 15:33 GGD (Rec: 06/24/18 15:33 GGD [id number]) Subjective Physical Therapy Visit Type Type Patient Refusal Notes Pt states he is to tired, that he did to much today. Recommendations To Nursing Amount of Assist Needed 1 Person Assist Discharge Recommendations PT Discharge Recommendations Home with 25/05 Assist Other Discharge Recommendations back to [facility]
--- NOTE | 2018-06-24 22:05 | PC.NURSE ---
SHIFT NOTE pt frequently dangling at bedside. bed alarm for safety as pt does not call for assistance. global aphasia pt with some difficulties communicating and can become very easily frustrated. pt refusing schedule medications, just wants to sleep at this time. frequent visual checks. call light within reach.
[2018-06-25 06:00] VITALS: BP 141/96; PULSE 104; RESP 17; TEMP 36.9; O2SAT 98
[2018-06-25] MEDS: CARVEDILOL 12.5 MG TABLET PO (08:41)
[2018-06-25] MEDS: OLANZapine 2.5 MG TABLET PO (08:41)
--- NOTE | 2018-06-25 08:44 | CM.DPC ---
Addendum entered by Alis Escobar R.N. 06/25/18 10:44: [facility] to let her know that the plan is for patient to return to [facility]. Original Note: DCP Cont: Patient had become agitated and threatned to leave. Was able to be re-directed. Is currently sitting talking with cargiver. Hospitalist feels that patient can go back to memory care in his familiar environment, versus going to a [facility]. Hospitalist is to be writing discharge orders. Attempted to reach Poly, daughter, nurse Le was able to reach Kallie. She will be here soon to milk pickup driver patient to go back to memory care. This child care centre director was also able to reach Kallie as well, and confirmed that she will be here soon. P: Discharge back to memory care today. Daughter to milk pickup driver. Alis Escobar RN/Insurance Assistant
--- NOTE | 2018-06-25 08:47 | PM.DS.1 ---
History of Present Illness Chief complaint: Chest and back pain 1-2 weeks Discharge Providers Date of admission: 06/22/18 16:50 Consults: 06/22/18 18:17 Consult to Occupational Therapy Evaluate & Treat Comment: Physician Instructions: Evaluate and treat Consult to Physical Therapy Evaluate & Treat Comment: Physician Instructions: Evaluate and Treat Consult to Powered Bridge Specialist Routine Comment: 06/24/18 10:02 Consult to Physical Therapy Evaluate & Treat Comment: Physician Instructions: Evaluate and Treat Discharge provider: Arabella Mackenzie MD Summary Discharge Diagnosis: 1.Atrial fibrillation with rapid ventricular response treated with IV metoprolol in the ER the heart rate still ranges about 100 patient is refusing his oral medications 2. Acute exacerbation of his congestive heart failure improved with IV Lasix 3. Acute hypoxic respiratory failure multifactorial atrial fibrillation heart failure now resolved; his O2 sats are 100% on room air 4. Dementia with restlessness and agitation refusing to take his olanzapine Hospital Course: This gentleman who normally lives in a [facility] was admitted because of worsening shortness of breath and hypoxia leg swellings and a rapid heart rate; he has an underlying chronic atrial fibrillation managed with long-acting Coreg for control of his rate is not on any anticoagulation for prevention of stroke from prior to admission the heart rate was controlled here with IV metoprolol in the ER subsequently the rate has been above 100 since the patient has been refusing to take his oral medications He had 3+ pitting leg edema in the feet bilaterally at the time of admission which has improved with IV diuretics His room air O2 saturations on pulse oximetry is 100% The daughter has been informed about the plan for discharge and will be coming to assist in getting back to the [facility] Status at Discharge Functional status at discharge: independent ambulation Overall status at discharge: patient is back to baseline Time Spent with Patient Greater than 30 minutes Exam Vital Signs (past 8 hours): - 06/25/18 06:00 Temperature 98.4 F Pulse Rate 104 H Respiratory Rate 17 Blood Pressure 141/96 H Pulse Oximetry 98 Oxygen Delivery Method Room Air Oxygen Flow Rate 0 Objective Labs Result Diagrams: 06/23/18 05:51 06/23/18 05:51 Discharge Plan Discharge Plan Patient Disposition: Assisted Living Other facility: [facility] Transportation: Private vehicle Discharge Med Rec/Prescriptions Discharge Orders: Discharge (Order); Ordered 06/25/18 Ordered By: Chaparro Mackenzie Discharge Health Status Multidrug resistant organism: No MDRO Provider Discharge Instructions Diet: Regular Activity: ad misty Discharge Data Attending Provider: Nikhil Carlos Admit Date/Time: 06/22/18 16:50 Quality VTE Deep Vein Thrombosis/Pulmonary Embolism Present on Admission: No
--- NOTE | 2018-06-25 08:55 | P.DS_ITS ---
History of Present Illness Chief complaint: Chest and back pain 1-2 weeks Discharge Providers Date of admission: 06/22/18 16:50 Consults: 06/22/18 18:17 Consult to Occupational Therapy Evaluate & Treat Comment: Physician Instructions: Evaluate and treat Consult to Physical Therapy Evaluate & Treat Comment: Physician Instructions: Evaluate and Treat Consult to Supervisor Furnace Process Routine Comment: 06/24/18 10:02 Consult to Physical Therapy Evaluate & Treat Comment: Physician Instructions: Evaluate and Treat Discharge provider: Arabella Mackenzie MD Summary Discharge Diagnosis: 1.Atrial fibrillation with rapid ventricular response treated with IV metoprolol in the ER the heart rate still ranges about 100 patient is refusing his oral medications 2. Acute exacerbation of his congestive heart failure improved with IV Lasix 3. Acute hypoxic respiratory failure multifactorial atrial fibrillation heart failure now resolved; his O2 sats are 100% on room air 4. Dementia with restlessness and agitation refusing to take his olanzapine Hospital Course: This gentleman who normally lives in a [facility] was admitted because of worsening shortness of breath and hypoxia leg swellings and a rapid heart rate; he has an underlying chronic atrial fibrillation managed with long-acting Coreg for control of his rate is not on any anticoagulation for prevention of stroke from prior to admission the heart rate was controlled here with IV metoprolol in the ER subsequently the rate has been above 100 since the patient has been refusing to take his oral medications He had 3+ pitting leg edema in the feet bilaterally at the time of admission which has improved with IV diuretics His room air O2 saturations on pulse oximetry is 100% The daughter has been informed about the plan for discharge and will be coming to assist in getting back to the [facility] Status at Discharge Functional status at discharge: independent ambulation Overall status at discharge: patient is back to baseline Time Spent with Patient Greater than 30 minutes Exam Vital Signs (past 8 hours): - 06/25/18 06:00 Temperature 98.4 F Pulse Rate 104 H Respiratory Rate 17 Blood Pressure 141/96 H Pulse Oximetry 98 Oxygen Delivery Method Room Air Oxygen Flow Rate 0 Objective Labs Result Diagrams: 06/23/18 05:51 06/23/18 05:51 Discharge Plan Discharge Plan Patient Disposition: Assisted Living Other facility: [facility] Transportation: Private vehicle Discharge Med Rec/Prescriptions Discharge Orders: Discharge (Order); Ordered 06/25/18 Ordered By: Chaparro Mackenzie Discharge Health Status Multidrug resistant organism: No MDRO Provider Discharge Instructions Diet: Regular Activity: ad misty Discharge Data Attending Provider: Nikhil Carlos Admit Date/Time: 06/22/18 16:50 Quality VTE Deep Vein Thrombosis/Pulmonary Embolism Present on Admission: No
[2018-06-25 09:05] VITALS: BP 151/110; PULSE 96; RESP 24; TEMP 36.6; O2SAT 100
--- NOTE | 2018-06-25 10:49 | PC.NURSE ---
patient very agitated this am at breakfast. didn't like his breakfast, stated very clearly that he is leaving even if he has to crawl out on his knees. discussed with hospitalist urgently this am who immediately saw patient and assessed. per md patient to return to memory care center which is his home. his daughters operate the memory care center where he lives. patient refuses meds, was able to convince to take the carvedilol and the olanzapine per dr instruction, to at least try to administer those two meds. he agreed to take them while waiting for his ride. his daughter valeriano walled to check on patient at the time of agitation this am, she states will coordinate pickling machine operator to take him home. she called and authorized mr. and mrs. moctezuma to pick him up and to sign paperwork for discharge. reviewed dc instructions with mrs moctezuma who will give packet to valeriano. valeriano is aware to look at instructions in packet. patient left by private vehicle w/ and mr. moctezuma at 1045 in no s/sx's of distress by wc.
--- NOTE | 2018-06-25 10:54 | CM.DPC ---
DCP Cont: Spoke to daughter, Kallie. Stated that a Mrs. Edwards was going to molded goods spot picker patient today. Confirmed this with her, and confirmed that patient would be taken to [facility]. Nurse, Le also spoke to daughter. P: Discharge to [facility]. Alis Escobar RN/Consulting Psychologist
== END 2018-06-25 10:45 | DRG 291 ==
LOC: ED 16:43 → AC 17:13
PROVIDERS: Admitting Provider Hospitalist; Emergency Provider Emergency Medicine; Visit Provider Hospitalist
DX: I50.33 Acute on chronic diastolic (congestive) heart failure (principal); J96.01 Acute respiratory failure with hypoxia; N18.4 Chronic kidney disease, stage 4 (severe); I48.91 Unspecified atrial fibrillation; F01.50 Vascular dementia, unspecified severity, without behavioral disturbance, psychotic disturbance, mood disturbance, and anxiety; R07.9 Chest pain, unspecified; I73.9 Peripheral vascular disease, unspecified; E87.5 Hyperkalemia; Z66 Do not resuscitate
CPT/HCPCS: 36415; 36600; 71045; 76770; 80048; 80061; 81001; 82805; 82962; 83735; 83880; 84484; 85025; 93005; 93010; 93306; 94760; 94762; 96374; 96375; 97161; 97165; 99283; 99285; J1644; J1940

== ENCOUNTER 2018-07-04 23:45 | Emergency (ER) | payer MEDICARE, SELFPAY ==
[2018-07-04 23:25] VITALS: BP 139/93; PULSE 82; RESP 18; TEMP 36.2; O2SAT 96
--- NOTE | 2018-07-04 23:51 | ED.ABDPAIN ---
HPI - Abdominal Pain General Chief Complaint: Abdominal Pain Stated Complaint: RLQ Pain Time Seen by Provider: 07/04/18 23:51 Source: EMS Mode of arrival: EMS History of Present Illness HPI narrative: 72-year-old male with a history of stroke presents by EMS for evaluation of abdominal pain from his [place] [facility] facility. He has had no fever or chills and no vomiting but started complaining of abdominal pain earlier today. He points to the right side of his abdomen and given his expressive aphasia gaining much history from him is quite difficult. Very little information carried over from the senior living MD complaint: abdominal pain Onset (ago): hour(s) Location: diffuse Severity: moderate Relieving factors: nothing Exacerbating factors: nothing Related Data Home Medications Medication Instructions Recorded Confirmed amlodipine [Norvasc] 5 mg PO QDAY #0 10/21/16 06/22/18 aspirin [Ecotrin] 325 mg PO QDAY #0 02/05/18 06/22/18 calcitriol [Rocaltrol] 0.25 mcg PO QDAY #0 02/05/18 06/22/18 Swish And Spit 10 ml PO QID 06/22/18 06/22/18 acetaminophen 650 mg PO Q4H PRN 06/22/18 06/22/18 carvedilol phosphate 20 mg PO DAILY 06/22/18 06/22/18 cholecalciferol (vitamin D3) 2,000 unit PO DAILY 06/22/18 06/22/18 [Vitamin D3] furosemide 20 mg DAILY 06/22/18 06/22/18 losartan 50 mg PO DAILY 06/22/18 06/22/18 olanzapine 2.5 mg TRANSLINGUAL DAILY 06/22/18 06/22/18 Allergies Allergy/AdvReac Type Severity Reaction Status Date / Time Penicillins [PENICILLINS] Allergy Severe I SWELL Verified 06/14/18 20:16 UP WITH RASHES, IT'S NASTY Review of Systems Review of Systems All systems reviewed & are unremarkable except as noted in HPI and below Constitutional Denies chills, Denies fever(s), Denies lethargy and Denies weakness Eyes Denies change in vision, Denies eye discharge, Denies irritation and Denies loss of vision ENT Ears, Nose, Mouth, and Throat: Denies change in voice, Denies neck pain and Denies sore throat Cardiovascular Denies chest pain, Denies irregular heart rhythm, Denies lightheadedness, Denies palpitations, Denies dyspnea, Denies dyspnea on exertion and Denies orthopnea Respiratory Denies cough, Denies dyspnea, Denies dyspnea on exertion and Denies wheezing Gastrointestinal Gastrointestinal: Reports abdominal pain, Denies change in bowel habits, Denies diarrhea, Denies nausea and Denies vomiting Genitourinary Denies hematuria, Denies flank pain, Denies urinary incontinence and Denies urinary urgency Musculoskeletal Denies neck pain Integumentary/Breasts Denies pruritus, Denies erythema, Denies rash and Denies wounds Neurologic Denies confusion, Denies loss of vision and Denies weakness Psychiatric Denies anxiety, Denies confusion, Denies depression, Denies homicidal ideation and Denies suicidal ideation Endocrine Denies palpitations Hematologic/Lymphatic Denies easy bruising Allergic/Immunologic Denies wheezing [facility] Medical History Aphasia (Acute) Atrial fibrillation (Acute) CHF (congestive heart failure) (Acute) CVA (cerebral vascular accident) (Acute) Cardiomyopathy (Acute) Diverticulosis (Acute) Kidney disease (Acute) PVD (peripheral vascular disease) (Acute) Vascular dementia in remission (Acute) Surgical History Status post appendectomy (Acute) Status post cholecystectomy (Acute) Social History household members: caregiver housing: assisted living facility Smoking Status: Never smoker alcohol intake: never Exam Narrative Exam Narrative: GENERAL: 72-year-old male in mild distress, seemingly having abdominal pain, rubbing the right side of his belly HEAD: Atraumatic. Normocephalic. No temporal or scalp tenderness. EYES: Pupils equal round and reactive. Extraocular motions intact. No scleral icterus. No injection or drainage. ENT: Nose without bleeding, purulent drainage or septal hematoma. Throat without erythema, tonsillar hypertrophy or exudate. Uvula midline. Airway patent. NECK: Trachea midline. No JVD or lymphadenopathy. Supple, nontender, no meningeal signs. CARDIOVASCULAR: Regular rate and rhythm without murmurs, gallops, or rubs. RESPIRATORY: Clear to auscultation. Breath sounds equal bilaterally. No wheezes, rales, or rhonchi. GASTROINTESTINAL: Abdomen soft, n mild tenderness on the right side of his abdomen, nondistended. No hepato-splenomegaly, or palpable masses. No guarding. EXTREMITIES: No clubbing, cyanosis, or edema. No joint tenderness, effusion, or edema noted. BACK: Nontender without deformity or crepitance. No flank tenderness. NEURO: Awake and attempting to communicate, though with difficulty, at his baseline SKIN: No rash or erythema. Initial Vital Signs Initial Vital Signs: Vital Signs Temperature 97.1 F L 07/04/18 23:25 Pulse Rate 82 07/04/18 23:25 Respiratory Rate 18 07/04/18 23:25 Blood Pressure 139/93 H 07/04/18 23:25 Pulse Oximetry 96 07/04/18 23:25 Course Orders Ordered: ED Orders 07/05/18 00:32 Complete Blood Count AUTO DIFF Stat Comprehensive Metabolic Panel Stat Lipase Stat Troponin I Stat 07/05/18 02:16 CT abdomen pelvis wo con Stat Sodium Chloride (Normal Saline 0.9%) 1,000 mls @ 150 mls/hr IV CONT EDGAR Last Admin: 07/05/18 01:02 Dose: 150 mls/hr Vital Signs - 8 hr 07/04/18 23:25 07/05/18 00:26 Temperature 97.1 F L 97.1 F L Pulse Rate 82 82 Respiratory Rate 18 18 Blood Pressure 139/93 H Blood Pressure [Left Arm] 139/93 H Pulse Oximetry 96 96 MDM - Abdominal Pain Differential Diagnosis Differential diagnosis: Likely abdominal pain, acute appendicitis, calculus of kidney, constipation, diverticulitis, gastroenteritis and small bowel obstruction Medical Records Attestation: I reviewed the patient's medical records. Lab Data Attestation: I reviewed the patient's lab results. Result diagrams: 07/05/18 00:32 07/05/18 00:32 Lab Results 07/05/18 07/05/18 Range/Units 00:32 00:32 WBC 6.4 (4.5-11.0) X10^3/uL RBC 4.29 L (4.5-5.9) X10^6/uL Hgb 13.5 (13.5-17.5) g/dL Hct 40.9 L (41-53) % MCV 95.3 (80-100) fL MCH 31.4 (26-34) PG MCHC 33.0 (30-36) % RDW 16.6 H (11.6-14.8) % Plt Count 155 (150-400) X10^3/uL Neut % (Auto) 73.2 (50-75) % Lymph % (Auto) 15.7 L (25-40) % [place] % (Auto) 9.0 (3-14) % Eos % (Auto) 1.5 L (2-4) % Baso % (Auto) 0.6 (0-2) % Neut # (Auto) 4700 (4445-6394) /uL Sodium 139 (137-145) mmol/L Potassium 5.3 H (3.4-5.1) mmol/L Chloride 106 (98-107) mmol/L Carbon Dioxide 24 (22-32) mmol/L BUN 56 H (9-20) mg/dL Creatinine 2.20 H (0.66-1.25) mg/dL Estimated GFR 29.7 L (>60) mL/min BUN/Creatinine Ratio 25.5 H (6-22) Glucose 111 H (80-110) mg/dL Calcium 8.8 (8.4-10.2) mg/dL Total Bilirubin 1.1 (0.2-1.3) mg/dL AST 24 (17-59) IU/L ALT 33 (21-72) IU/L Alkaline Phosphatase 55 (38-126) U/L Troponin I 0.039 H (0.01-0.034) ng/mL Total Protein 6.3 (6.3-8.2) g/dL Albumin 3.5 (3.5-5.0) g/dL Globulin 2.8 (1.7-4.1) g/dL Albumin/Globulin Ratio 1.3 (1.0-2.8) Lipase 125 (23-300) U/L Imaging Data CT scan - abdomen: Radiologist's impression: No acute process Discharge Plan Departure Patient Disposition: Home Clinical Impression: Abdominal pain Instructions: DI for Abdominal Pain-Adult Activity Restrictions/Additional Instructions: *You have been diagnosed with [ abdominal pain ] *What to do: *Continue to take medications as directed *Follow up with your primary care provider in 2-3 days, call for an appointment. Let them know you were seen in the Emergency Department and that we ask that you be seen in follow up *Return to ER if you should have any new, worsening or concerning symptoms Prescriptions: No Action amlodipine [Norvasc] 5 MG tablet 5 mg PO QDAY Qty: 0 RF: 0 aspirin [Ecotrin] 325 MG tablet,delayed release (DR/EC) 325 mg PO QDAY Qty: 0 RF: 0 calcitriol [Rocaltrol] 0.25 MCG capsule 0.25 mcg PO QDAY Qty: 0 RF: 0 losartan 50 mg Tablet 50 mg PO DAILY RF: 0 furosemide 10 mg/mL Solution 20 mg DAILY RF: 0 acetaminophen 325 mg Tablet 650 mg PO Q4H PRN (Reason: fever >101.5 or pain) RF: 0 carvedilol phosphate 20 mg Capsule, Er Multiphase 24 Hr 20 mg PO DAILY RF: 0 cholecalciferol (vitamin D3) [Vitamin D3] 2,000 unit Capsule 2,000 unit PO DAILY RF: 0 olanzapine 5 mg Tablet,Disintegrating 2.5 mg Translingual DAILY RF: 0 Swish And Spit 10 ml PO QID RF: 0
[2018-07-05 00:26] VITALS: BP 139/93; PULSE 82; RESP 18; TEMP 36.2; O2SAT 96; BMI 26.4
[2018-07-05 00:40] LABS: Add Manual Diff / Slide Review NO; Basophils Percent Auto 0.6 % (0-2); Eosinophils Percent Auto 1.5 % (2-4); Hematocrit 40.9 % (41-53); Hemoglobin 13.5 g/dL (13.5-17.5); Lymphocytes Percent Auto 15.7 % (25-40); Mean Corpuscular Hemoglobin 31.4 PG (26-34); Mean Corpuscular Volume 95.3 fL (80-100); Neutrophils Absolute Auto 4700 /uL (3000-5900); Neutrophils Percent Auto 73.2 % (50-75); Platelet Count 155 X10^3/uL (150-400); Red Blood Cell Count 4.29 X10^6/uL (4.5-5.9); Red Cell Distribution Width 16.6 % (11.6-14.8); White Blood Cell Count 6.4 X10^3/uL (4.5-11.0)
[2018-07-05 00:49] LABS: Alanine Aminotransferase 33 IU/L (21-72); Albumin 3.5 g/dL (3.5-5.0); Albumin Globulin Ratio 1.3 (1.0-2.8); Alkaline Phosphatase 55 U/L (38-126); Aspartate Aminotransferase 24 IU/L (17-59); BUN Creatinine Ratio 25.5 (6-22); Bilirubin Total 1.1 mg/dL (0.2-1.3); Blood Urea Nitrogen 56 mg/dL (9-20); Calcium 8.8 mg/dL (8.4-10.2); Carbon Dioxide 24 mmol/L (22-32); Chloride 106 mmol/L (98-107); Estimated Glomerular Filt Rate 29.7 mL/min (>60); Globulin 2.8 g/dL (1.7-4.1); Glucose 111 mg/dL (80-110); HEMOLYSIS < 15 (0-50); Lipase 125 U/L (23-300); Sodium 139 mmol/L (137-145); Total Protein 6.3 g/dL (6.3-8.2)
[2018-07-05 00:50] LABS: Potassium 5.3 mmol/L (3.4-5.1)
[2018-07-05 01:00] LABS: Troponin I 0.039 ng/mL (0.01-0.034)
[2018-07-05] MEDS: SODIUM CHLORIDE 0.9% 1,000 ML 150 ML IV (01:02)
--- NOTE | 2018-07-05 02:16 | DI.CT.S_ITS ---
PROCEDURE: CT ABDOMEN PELVIS WO CON INDICATIONS: severe R sided abdominal pain TECHNIQUE: Noncontrast 5 mm thick sections acquired from the diaphragms to the symphysis. 5 mm coronal and sagittal reformats were then performed. For radiation dose reduction, the following was used: automated exposure control, adjustment of mA and/or kV according to patient size. COMPARISON: None. FINDINGS: Image quality: Excellent. ABDOMEN: Lung bases: There is small right greater than left bilateral pleural effusion and bibasilar atelectasis. Hazy groundglass opacities are also seen in bilateral lung bases suggestive of mild pulmonary edema. Cardiac size is enlarged, no pericardial effusion.. Solid organs: Liver is normal in size. Gallbladder is surgically absent. Pancreas is normal in contours. Spleen is normal in size. No adrenal nodules. Kidneys are normal in size, without hydronephrosis or nephrolithiasis. Mild bilateral perinephric fat stranding is seen, and no gross perinephric fluid. Peritoneum and bowel: Unenhanced bowel loops demonstrate normal wall thickness and caliber. No free fluid or air. Extensive sigmoid diverticulosis is seen, no CT evidence of acute diverticulitis. Appendix is not definitively identified. No secondary signs for acute appendicitis is seen in right lower quadrant abdomen. Nodes and vessels: No retroperitoneal or mesenteric adenopathy by size criteria. Aorta and inferior vena cava are normal in caliber. Atherosclerotic calcifications are noted throughout the abdominal aorta. Miscellaneous: No ventral hernias. PELVIS: Genitourinary: Bladder wall thickness is normal. Urinary bladder is distended. No calcified gallstone is seen. Enlarged prostate gland with mass effect on fluoroscopy the urinary bladder is noted. Miscellaneous: No inguinal hernias or adenopathy. Bones: No suspicious bony lesions. No vertebral body compression fractures. Degenerative disc disease through all mid to lower lumbar spine is seen more prominent at L5-S1 level. IMPRESSION: 1. Appendix is not definitely identified. No secondary CT signs for acute appendicitis. Sigmoid diverticulosis, no significant of acute diverticulitis. No free fluid or free air. 2. No obstructing renal stone or hydronephrosis. Nonspecific bilateral perinephric fat stranding, infectious process cannot be excluded such as pyelonephritis. Clinical correlation is recommended. 3. Right greater than left bilateral pleural effusion and pulmonary edema. Cardiomegaly. Findings could represent early CHF changes. No significant discrepancies. Dictated by: Yuval Andrade M.D. on 07/05/2018 at 8:58 Approved by: Yuval Andrade M.D. on 07/05/2018 at 9:03
[2018-07-05 04:35] VITALS: BP 153/112; PULSE 98; RESP 25; O2SAT 99
== END 2018-07-05 04:38 | disposition home or self-care (01) ==
PROVIDERS: Emergency Provider Emergency Medicine
DX: R10.9 Unspecified abdominal pain (principal)
CPT/HCPCS: 74176; 80053; 83690; 84484; 85025; 96360; 96361; 99283; 99284

== ENCOUNTER 2018-07-16 13:06 | Inpatient (IN) | payer MEDICARE, SELFPAY ==
[2018-07-16] VITALS (12 sets, daily range): BP systolic 115–177; BP diastolic 86–117; PULSE 95–122; RESP 18–31; TEMP 36.1; O2SAT 91–100; BMI 28.8
--- NOTE | 2018-07-16 13:11 | DI.RAD.S_ITS ---
PROCEDURE: XR CHEST 1V INDICATIONS: Chest pain. TECHNIQUE: One view of the chest was acquired. COMPARISON: [facility], CR, XR CHEST 1V, 06/22/2018, 15:25. FINDINGS: The patient's chin projects over the right lung apex, obscuring evaluation. Surgical changes and devices: Monitoring leads project over the chest. Lungs and pleura: No pleural effusions or pneumothorax. Lungs are clear. Mediastinum: Mediastinal contours appear normal. Heart size is normal. There is calcification of the aortic arch. Bones and chest wall: No suspicious bony lesions. Overlying soft tissues appear unremarkable. IMPRESSION: No acute cardiopulmonary disease. Dictated by: Gavin Christian M.D. on 07/16/2018 at 14:23 Approved by: Gavin Christian M.D. on 07/16/2018 at 14:30
[2018-07-16 13:36] LABS: Add Manual Diff / Slide Review NO; Eosinophils Percent Auto 0.4 % (2-4); Hematocrit 44.4 % (41-53); Hemoglobin 14.7 g/dL (13.5-17.5); Lymphocytes Percent Auto 17.3 % (25-40); Mean Corpuscular HGB Conc 33.2 % (30-36); Mean Corpuscular Hemoglobin 31.3 PG (26-34); Mean Corpuscular Volume 94.1 fL (80-100); Monocytes Percent Auto 9.5 % (3-14); Neutrophils Absolute Auto 4700 /uL (3000-5900); Neutrophils Percent Auto 71.8 % (50-75); Platelet Count 148 X10^3/uL (150-400); Red Blood Cell Count 4.71 X10^6/uL (4.5-5.9); Red Cell Distribution Width 17.1 % (11.6-14.8); White Blood Cell Count 6.6 X10^3/uL (4.5-11.0)
[2018-07-16] MEDS: CARVEDILOL 12.5 MG TABLET PO ×2 (13:43→20:28)
[2018-07-16] MEDS: SODIUM CHLORIDE 0.9% 1,000 ML 150 ML IV (13:44)
[2018-07-16 14:02] LABS: INR 1.8 (0.9-1.3); Prothrombin Time 19.4 SECONDS (10.1-12.7)
[2018-07-16 14:05] LABS: PTT Partial Thromboplastin Tim 26 SECONDS (26.4-36.2)
[2018-07-16 14:07] LABS: Alanine Aminotransferase 41 IU/L (21-72); Albumin 3.5 g/dL (3.5-5.0); Albumin Globulin Ratio 1.2 (1.0-2.8); Alkaline Phosphatase 55 U/L (38-126); Aspartate Aminotransferase 32 IU/L (17-59); BUN Creatinine Ratio 20.8 (6-22); Bilirubin Total 2.1 mg/dL (0.2-1.3); Blood Urea Nitrogen 52 mg/dL (9-20); Calcium 9.2 mg/dL (8.4-10.2); Carbon Dioxide 23 mmol/L (22-32); Chloride 104 mmol/L (98-107); Estimated Glomerular Filt Rate 25.5 mL/min (>60); Glucose 129 mg/dL (80-110); HEMOLYSIS < 15 (0-50); Potassium 5.2 mmol/L (3.4-5.1); Sodium 139 mmol/L (137-145); Total Protein 6.5 g/dL (6.3-8.2)
[2018-07-16 14:09] LABS: Lactate (Lactic Acid) 2.8 mmol/L (0.7-2.1)
[2018-07-16 14:24] LABS: Prolactin 22.8 ng/mL (3.7-17.9)
[2018-07-16 14:43] LABS: Troponin I 0.128 ng/mL (0.01-0.034)
--- NOTE | 2018-07-16 15:04 | PC.NURSE ---
assisted pt to stand at side of bed with urinal. Pt was unable to void after two attempts.
--- NOTE | 2018-07-16 15:14 | ED_ITS ---
HPI - Altered Mental Status General Chief Complaint: Altered Mental Status Stated Complaint: Side Pain Time Seen by Provider: 07/16/18 13:09 Source: family, EMS and old records reviewed Mode of arrival: EMS History of Present Illness HPI narrative: Patient is a 73-year-old male with history of dementia and isextremely poor historian. He was admitted June 22 through June 25 for CHF. He has a history of atrial fibrillation CHF and CVA. She complains of pain frequently. I have spoken to the daughter and she thinks this pain is in his epigastric scar area. He seems to grab that area every time he eats it has been ongoing for awhile. He is is chronically noncompliant with his medication both the facility and the daughter state that they can't get him to take any medicine. Today he is here for pain and possible confusion. MD complaint: altered mental status Related Data Home Medications Medication Instructions Recorded Confirmed amlodipine [Norvasc] 5 mg PO QDAY #0 10/21/16 06/22/18 aspirin [Ecotrin] 325 mg PO QDAY #0 02/05/18 06/22/18 calcitriol [Rocaltrol] 0.25 mcg PO QDAY #0 02/05/18 06/22/18 Swish And Spit 10 ml PO QID 06/22/18 06/22/18 acetaminophen 650 mg PO Q4H PRN 06/22/18 06/22/18 carvedilol phosphate 20 mg PO DAILY 06/22/18 06/22/18 cholecalciferol (vitamin D3) 2,000 unit PO DAILY 06/22/18 06/22/18 [Vitamin D3] furosemide 20 mg DAILY 06/22/18 06/22/18 losartan 50 mg PO DAILY 06/22/18 06/22/18 olanzapine 2.5 mg TRANSLINGUAL DAILY 06/22/18 06/22/18 Allergies Allergy/AdvReac Type Severity Reaction Status Date / Time Penicillins [PENICILLINS] Allergy Severe I SWELL Verified 07/16/18 13:09 UP WITH RASHES, IT'S NASTY Review of Systems Review of Systems Limited due to patient's mental condition Constitutional Denies fever(s) and Denies frequent falls Cardiovascular Reports chest pain Respiratory Denies cough Gastrointestinal Gastrointestinal: Denies belching and Denies vomiting Musculoskeletal Denies back pain, Denies muscle weakness, Denies numbness and Denies tingling Integumentary/Breasts Denies pruritus, Denies erythema, Denies rash and Denies wounds Neurologic Denies frequent falls, Denies numbness and Denies tingling Exam Initial Vital Signs Initial Vital Signs: Vital Signs Temperature 96.9 F L 07/16/18 13:09 Pulse Rate 114 H 07/16/18 13:09 Respiratory Rate 22 07/16/18 13:09 Blood Pressure 132/100 H 07/16/18 13:09 Pulse Oximetry 100 07/16/18 13:09 Const General: cooperative and frail appearing (Chronically ill) Orientation: alert and awake [facility] Head: normal to inspection Chest Chest: normal inspection of the chest Resp Effort & Inspection: normal respiratory effort Auscultation: no crackles, egophony and no rhonchi Cardio Rate: tachycardic Rhythm: abnormal rhythm irregularly irregular Heart Sounds: S1 normal and S2 normal GI Inspection: scar Palpation: soft, No firm and No guarding Skin General: no rashes or lesions noted, No jaundice and No petechiae Neuro General: alert and awake Cranial Nerves: CN's II-XI intact bilaterally Course Orders Ordered: ED Orders 07/16/18 13:11 XR chest 1V Stat EKG-12 Lead Stat 07/16/18 13:28 B Type Natriuretic Peptide Stat Complete Blood Count AUTO DIFF Stat Comprehensive Metabolic Panel Stat Partial Thromboplastin Time Stat Prolactin Stat Prothrombin Time INR Stat Troponin I Stat 07/16/18 13:46 Blood Culture Stat Lactate (Lactic Acid) Stat 07/16/18 15:25 Procalcitonin Stat 07/16/18 16:00 Urine Culture Stat Discontinued Medications Aspirin (Aspirin Chew) 324 mg PO NOW ONE Stop: 07/16/18 16:50 Carvedilol (Coreg) 12.5 mg PO NOW ONE Stop: 07/16/18 13:33 Last Admin: 07/16/18 13:43 Dose: 12.5 mg Enoxaparin Sodium (Lovenox) 100 mg 1 mg/kg (100 mg) SUBCUT NOW ONE Stop: 07/16/18 16:50 Furosemide (Lasix) 40 mg IV NOW ONE Stop: 07/16/18 16:50 Sodium Chloride (Normal Saline 0.9%) 1,000 mls @ 150 mls/hr IV CONT EDGAR Last Infusion: 07/16/18 16:05 Dose: 0 mls/hr Infusion: 07/16/18 14:51 Dose: 125 mls/hr Admin: 07/16/18 13:44 Dose: 150 mls/hr Sodium Chloride (Normal Saline 0.9%) 1,000 mls @ 125 mls/hr IV CONT EDGAR Last Admin: 07/16/18 16:06 Dose: Vital Signs - 8 hr 07/16/18 13:09 07/16/18 13:43 07/16/18 14:15 Temperature 96.9 F L Pulse Rate 114 H 116 H 122 H Respiratory Rate 22 22 Blood Pressure 132/100 H 153/117 H Blood Pressure [Right Arm] 177/115 H Pulse Oximetry 100 91 07/16/18 14:48 07/16/18 15:01 07/16/18 15:17 Temperature Pulse Rate 102 H 116 H 95 H Respiratory Rate 18 31 H 18 Blood Pressure Blood Pressure [Right Arm] 137/87 150/112 H 125/91 H Pulse Oximetry 92 97 07/16/18 15:31 07/16/18 15:45 07/16/18 16:19 Temperature Pulse Rate 112 H 108 H 105 H Respiratory Rate 27 H 20 22 Blood Pressure Blood Pressure [Right Arm] 125/91 H 139/102 H 120/86 Pulse Oximetry 91 92 07/16/18 17:11 Temperature Pulse Rate 103 H Respiratory Rate 23 Blood Pressure Blood Pressure [Right Arm] 115/91 H Pulse Oximetry 92 MDM - Altered Mental Status Lab Data Attestation: I reviewed the patient's lab results. Result diagrams: 07/16/18 13:28 07/16/18 13:28 Lab Results 07/16/18 07/16/18 07/16/18 Range/Units 13:28 13:28 13:28 WBC 6.6 (4.5-11.0) X10^3/uL RBC 4.71 (4.5-5.9) X10^6/uL Hgb 14.7 (13.5-17.5) g/dL Hct 44.4 (41-53) % MCV 94.1 (80-100) fL MCH 31.3 (26-34) PG MCHC 33.2 (30-36) % RDW 17.1 H (11.6-14.8) % Plt Count 148 L (150-400) X10^3/uL Neut % (Auto) 71.8 (50-75) % Lymph % (Auto) 17.3 L (25-40) % [place] % (Auto) 9.5 (3-14) % Eos % (Auto) 0.4 L (2-4) % Baso % (Auto) 1.0 (0-2) % Neut # (Auto) 4700 (1676-1003) /uL PT 19.4 H (10.1-12.7) SECONDS INR 1.8 H (0.9-1.3) APTT 26 L (26.4-36.2) SECONDS Sodium 139 (137-145) mmol/L Potassium 5.2 H (3.4-5.1) mmol/L Chloride 104 (98-107) mmol/L Carbon Dioxide 23 (22-32) mmol/L BUN 52 H (9-20) mg/dL Creatinine 2.50 H (0.66-1.25) mg/dL Estimated GFR 25.5 L (>60) mL/min BUN/Creatinine Ratio 20.8 (6-22) Glucose 129 H (80-110) mg/dL Lactate (0.7-2.1) mmol/L Calcium 9.2 (8.4-10.2) mg/dL Total Bilirubin 2.1 H (0.2-1.3) mg/dL AST 32 (17-59) IU/L ALT 41 (21-72) IU/L Alkaline Phosphatase 55 (38-126) U/L Troponin I 0.128 H* (0.01-0.034) ng/mL B-Natriuretic Peptide (<100) Total Protein 6.5 (6.3-8.2) g/dL Albumin 3.5 (3.5-5.0) g/dL Globulin 3.0 (1.7-4.1) g/dL Albumin/Globulin Ratio 1.2 (1.0-2.8) Procalcitonin (<0.5) ng/mL Prolactin 22.8 H (3.7-17.9) ng/mL 07/16/18 07/16/18 07/16/18 Range/Units 13:28 13:46 15:25 WBC (4.5-11.0) X10^3/uL RBC (4.5-5.9) X10^6/uL Hgb (13.5-17.5) g/dL Hct (41-53) % MCV (80-100) fL MCH (26-34) PG MCHC (30-36) % RDW (11.6-14.8) % Plt Count (150-400) X10^3/uL Neut % (Auto) (50-75) % Lymph % (Auto) (25-40) % [place] % (Auto) (3-14) % Eos % (Auto) (2-4) % Baso % (Auto) (0-2) % Neut # (Auto) (6979-1235) /uL PT (10.1-12.7) SECONDS INR (0.9-1.3) APTT (26.4-36.2) SECONDS Sodium (137-145) mmol/L Potassium (3.4-5.1) mmol/L Chloride (98-107) mmol/L Carbon Dioxide (22-32) mmol/L BUN (9-20) mg/dL Creatinine (0.66-1.25) mg/dL Estimated GFR (>60) mL/min BUN/Creatinine Ratio (6-22) Glucose (80-110) mg/dL Lactate 2.8 H (0.7-2.1) mmol/L Calcium (8.4-10.2) mg/dL Total Bilirubin (0.2-1.3) mg/dL AST (17-59) IU/L ALT (21-72) IU/L Alkaline Phosphatase (38-126) U/L Troponin I (0.01-0.034) ng/mL B-Natriuretic Peptide 2830.0 H (<100) Total Protein (6.3-8.2) g/dL Albumin (3.5-5.0) g/dL Globulin (1.7-4.1) g/dL Albumin/Globulin Ratio (1.0-2.8) Procalcitonin 0.05 (<0.5) ng/mL Prolactin (3.7-17.9) ng/mL Point of Care Testing Glucose POC 122 ECG Data Attestation: I personally reviewed and interpreted this ECG as follows: Prior ECG tracings: available for review Interpretation: EKG 1. AFib with RVR rate 118 similar to previous EKG no acute ST-T changes EKG 2. AFib with RVR rate 108 no some previous EKG no acute ST changes MDM Narrative Medical decision making narrative: The patient now is positive troponin previously all troponins indeterminate. Mild lactic acid of 2.8 as well, no source of infection at this time. I discussed with daughter at length about goals of care stress testing and stent placement. Initially thought maybe would go down the stent pathway. However I discussed case with cardiology. In a patient who has dementia and is chronically noncompliant with medications unlikely that they would put a stent in. Recommend medical management only. The daughter is agreeable to medical management only. His BNP is also noted slightly more elevated than previous at 2830, previously 2230. Initially IV fluids were started he got about 200 mL BMP then came back more elevated. Fluids were stopped with Lasix given. He has previously had [address] scans the last 1 was July 05 daughter actually thinks food may be getting stuck some where she can see a bulge where ever he eats oral contrasted CT may be beneficial at some point. Discharge Plan Departure Patient Disposition: Admitted As Inpatient Clinical Impression: Elevated troponin, CHF (congestive heart failure) Admit Date/Time: 07/16/18 16:49 Admit Provider: Conchis Roberto
[2018-07-16 16:19] LABS: Procalcitonin 0.05 ng/mL (<0.5)
[2018-07-16] MEDS: ASPIRIN 81 MG TAB 324 MG PO (17:14)
[2018-07-16] MEDS: ENOXAPARIN 80 MG/0.8 ML SYRINGE 100 MG SUBCUT (17:15)
[2018-07-16] MEDS: FUROSEMIDE 40 MG/4 ML VIAL IV (17:15)
[2018-07-16 17:56] LABS: Reflexed Lactate in 2 Hours Y
[2018-07-16 18:31] LABS: Lactate 2HR (Lactic Acid Rflx) 2.4 mmol/L (0.7-2.1)
--- NOTE | 2018-07-16 19:04 | P.HP_ITS ---
History of Present Illness Date Patient Seen: 07/16/18 Chief complaint: Side Pain Narrative: The patient is a pleasantly demented 73 y/o male who is unable to provide any history. History is obtained from the records and ED evaluation/ conversation with the daughter. The patient has a history of chronic systolic heart failure, atrial fibrillation , and chronic kidney disease. He lives at a facility but has been non compliant with his medications. He was brought in because of confusion and pain. The patient has been pointing to his abdominal scar. He is unable to tell me anything further. He had an EKG which revealed atrial fibrillation with a rapid ventricular response rate. His Troponin was elevated at .128. Dr. Mcbride had a discussion with the daughter who is DPOA and they wanted medical management and not to pursue cardiac catherization or invasive procedures. Patient had a BNP of greater than 2500. He was given 40mg of Lasix, Asa, 100mg of Lovenox and admitted to the hospital. Patient History Medical History Aphasia (Acute) Atrial fibrillation (Acute) CHF (congestive heart failure) (Acute) CVA (cerebral vascular accident) (Acute) Cardiomyopathy (Acute) Diverticulosis (Acute) Kidney disease (Acute) PVD (peripheral vascular disease) (Acute) Vascular dementia in remission (Acute) Surgical History Status post appendectomy (Acute) Status post cholecystectomy (Acute) Family & Social History Family History: Reviewed 07/16/18 by Conchis Roberto MD Social History: household members caregiver Unable to get family history as daughter is gone and patient is unable to provide this information because of severe dementia Tobacco & Substance use: Smoking Status Never smoker alcohol intake never Substance Use Type does not use Meds Home Medications Medication Instructions Recorded Confirmed Type aspirin [Ecotrin] 325 mg PO QDAY #0 02/05/18 06/22/18 History calcitriol [Rocaltrol] 0.25 mcg PO QDAY #0 02/05/18 06/22/18 History Swish And Spit 10 ml PO QID 06/22/18 06/22/18 History acetaminophen 650 mg PO Q4H PRN 06/22/18 06/22/18 History cholecalciferol (vitamin D3) 2,000 unit PO DAILY 06/22/18 06/22/18 History [Vitamin D3] furosemide 20 mg DAILY 06/22/18 06/22/18 History losartan 50 mg PO DAILY 06/22/18 06/22/18 History olanzapine 2.5 mg TRANSLINGUAL DAILY 06/22/18 06/22/18 History Allergies Allergy/AdvReac Type Severity Reaction Status Date / Time Penicillins [PENICILLINS] Allergy Severe I SWELL Verified 07/16/18 13:09 UP WITH RASHES, IT'S NASTY Review of Systems Review of Systems Unable to get reliable review of systems given patients dementia Exam Vital Signs (past 8 hours): - 07/16/18 13:09 07/16/18 13:43 07/16/18 14:15 Temperature 96.9 F L Pulse Rate 114 H 116 H 122 H Respiratory Rate 22 22 Blood Pressure 132/100 H 153/117 H Blood Pressure [Right Arm] 177/115 H Pulse Oximetry 100 91 07/16/18 14:48 07/16/18 15:01 07/16/18 15:17 Temperature Pulse Rate 102 H 116 H 95 H Respiratory Rate 18 31 H 18 Blood Pressure Blood Pressure [Right Arm] 137/87 150/112 H 125/91 H Pulse Oximetry 92 97 07/16/18 15:31 07/16/18 15:45 07/16/18 16:19 Temperature Pulse Rate 112 H 108 H 105 H Respiratory Rate 27 H 20 22 Blood Pressure Blood Pressure [Right Arm] 125/91 H 139/102 H 120/86 Pulse Oximetry 91 92 07/16/18 17:11 07/16/18 17:45 Temperature 96.9 F L Pulse Rate 103 H 114 H Respiratory Rate 23 22 Blood Pressure 141/101 H Blood Pressure [Right Arm] 115/91 H Pulse Oximetry 92 Oxygen Delivery Method Room Air Narrative Exam Narrative: Awake and alert and in NAD HEENT: NC/AT, PERRL, EOMI, oropharyx patient is edentulous without lesions Neck supple: = JVD Lungs: decreased breath sounds with scattered crackles CV: irregularly irregular nl S1S2 2/6 RIAZ ABd: soft/ mildly tender over healed surgical incision Ext: 3+ pitting edema bilaterally Neuro: Patient is unable to follow commands He moves all extremities, His speech is garbled and difficlut to understand He is awake and alert Skin: no lesions Spine: no lesions or pain with palpations Psych: Very confused, unable to answer simple questions Objective Labs Result Diagrams: 07/16/18 13:28 07/16/18 13:28 Labs: Laboratory Results - last 24 hr 07/16/18 07/16/18 07/16/18 13:28 13:28 13:28 WBC 6.6 RBC 4.71 Hgb 14.7 Hct 44.4 MCV 94.1 MCH 31.3 MCHC 33.2 RDW 17.1 H Plt Count 148 L Neut % (Auto) 71.8 Lymph % (Auto) 17.3 L [place] % (Auto) 9.5 Eos % (Auto) 0.4 L Baso % (Auto) 1.0 Neut # (Auto) 4700 PT 19.4 H INR 1.8 H APTT 26 L Sodium 139 Potassium 5.2 H Chloride 104 Carbon Dioxide 23 BUN 52 H Creatinine 2.50 H Estimated GFR 25.5 L BUN/Creatinine Ratio 20.8 Glucose 129 H Lactate Calcium 9.2 Total Bilirubin 2.1 H AST 32 ALT 41 Alkaline Phosphatase 55 Troponin I 0.128 H* B-Natriuretic Peptide Total Protein 6.5 Albumin 3.5 Globulin 3.0 Albumin/Globulin Ratio 1.2 Procalcitonin Prolactin 22.8 H 07/16/18 07/16/18 07/16/18 13:28 13:46 15:25 WBC RBC Hgb Hct MCV MCH MCHC RDW Plt Count Neut % (Auto) Lymph % (Auto) [place] % (Auto) Eos % (Auto) Baso % (Auto) Neut # (Auto) PT INR APTT Sodium Potassium Chloride Carbon Dioxide BUN Creatinine Estimated GFR BUN/Creatinine Ratio Glucose Lactate 2.8 H Calcium Total Bilirubin AST ALT Alkaline Phosphatase Troponin I B-Natriuretic Peptide 2830.0 H Total Protein Albumin Globulin Albumin/Globulin Ratio Procalcitonin 0.05 Prolactin 07/16/18 18:15 WBC RBC Hgb Hct MCV MCH MCHC RDW Plt Count Neut % (Auto) Lymph % (Auto) [place] % (Auto) Eos % (Auto) Baso % (Auto) Neut # (Auto) PT INR APTT Sodium Potassium Chloride Carbon Dioxide BUN Creatinine Estimated GFR BUN/Creatinine Ratio Glucose Lactate 2.4 H Calcium Total Bilirubin AST ALT Alkaline Phosphatase Troponin I B-Natriuretic Peptide Total Protein Albumin Globulin Albumin/Globulin Ratio Procalcitonin Prolactin Assessment & Plan (1) Non-STEMI (non-ST elevated myocardial infarction): Problem details: Per discussion with the daughter, will continue asa, lovenox, beta mohini for now will trend troponin's but no intervention expected Current visit: Yes Status: Acute (2) Abdominal pain: Problem details: will follow and treat with pain medicatiosn Qualifiers: Abdominal location: unspecified location Qualified Code(s): R10.9 - Unspecified abdominal pain Current visit: No Status: Acute (3) CHF (congestive heart failure): Problem details: Continue daily Lasix, Losartan Qualifiers: Heart failure chronicity: acute on chronic Heart failure type: unspecified Qualified Code(s): I50.9 - Heart failure, unspecified Current visit: Yes Status: Acute (4) Atrial fibrillation with RVR: Problem details: Will continue Coreg Current visit: No Status: Acute (5) Chronic renal failure: Problem details: continue calcitriol and Vit D3 Will follow labs closely Continue losartan given ACute decompensated Heart Failure with known EF of 15% Current visit: Yes Status: Acute (6) Hypertension: Problem details: continue losartan, coreg, Lasix for now Will hold amlodipine in the setting of elevated troponins Current visit: Yes Status: Acute Plan: Assessment/Plan Narrative: Patient would benefit from care conference to discuss director of agriculture care. He appears to be an excellent candidate for hospice and transition to comfort measures He will remain a full code for now. Will adjust following further discussion
[2018-07-16 19:27] LABS: Cholesterol 141 mg/dL (140-199); HDL Cholesterol 30 mg/dL (40-60); LDL Cholesterol Calculated 92 mg/dL (<100); Triglycerides 96 mg/dL (35-150)
[2018-07-16] MEDS: ENOXAPARIN 100 MG/ML SYRINGE SUBCUT (20:28)
[2018-07-16] MEDS: OLANZapine ODT 10 MG TAB 5 MG PO (20:29)
[2018-07-16] MEDS: SENNOSIDES 8.6 MG TABLET 17.2 MG PO (20:29)
--- NOTE | 2018-07-16 22:03 | PC.NURSE ---
Patient is ordered for a Kessler cath but patient refused insertion of cath w/ nurse at bedside, stating I don't need one of those. Patient has been given IV Lasix down in ED prior to arrival to floor and had 400ml of dark yellow urine since arrival. Patient had several occasions of trying to urinate but was unsuccessful. Patient was finally able to start stream after 4th time of attempting. Discussed reasonings w/ patient about why we wish to insert a Kessler Cath but patient is straight forward that he does not need or want one.
[2018-07-17] VITALS (7 sets, daily range): BP systolic 124–140; BP diastolic 79–97; PULSE 65–89; RESP 16–20; TEMP 35.6–36.7; O2SAT 93–98
--- NOTE | 2018-07-17 03:17 | PC.NURSE ---
Addendum entered by Quincy Lala R.N. 07/17/18 07:00: 0700: Pt declines to use urinal. Bladder scanned, showing 600cc urine in bladder. Dr. Felisa aceves. Original Note: Director Of First Impressions Note: 0100: Sleeping, easily arousable. [address] in lt AC and lt hand. Pt speaking, but difficult to understand due to mumbling, and speaking in Luxembourgish and Slovak. He is resting in bed. 0530: Pt assisted to bedside commode to void. He declines to use walker. Pt didn't void, and was agitated about nursing attempting to get him to use urinal.
[2018-07-17 05:33] LABS: Blood Urea Nitrogen 55 mg/dL (9-20); Calcium 8.7 mg/dL (8.4-10.2); Carbon Dioxide 22 mmol/L (22-32); Chloride 106 mmol/L (98-107); Estimated Glomerular Filt Rate 25.5 mL/min (>60); Glucose 93 mg/dL (80-110); HEMOLYSIS < 15 (0-50); Sodium 138 mmol/L (137-145)
[2018-07-17 05:35] LABS: Potassium 5.2 mmol/L (3.4-5.1)
[2018-07-17 05:44] LABS: Troponin I 0.379 ng/mL (0.01-0.034)
--- NOTE | 2018-07-17 06:43 | DI.RAD.S_ITS ---
PROCEDURE: XR CHEST 1V INDICATIONS: CHF TECHNIQUE: One view of the chest was acquired. COMPARISON: [facility], CT, CT ABDOMEN PELVIS WO CON, 07/05/2018, 2:20. [facility], CR, XR CHEST 1V, 07/16/2018, 14:14. FINDINGS: Surgical changes and devices: None. Lungs and pleura: Increased pulmonary vascularity consistent with mild pulmonary congestion. Chronic right hemidiaphragmatic region. No large pleural effusions or pneumothorax. Mediastinum: Mediastinal contours appear normal. Heart size is severely increased. Bones and chest wall: No suspicious bony lesions. Overlying soft tissues appear unremarkable. IMPRESSION: Cardiomegaly. Mild CHF. Dictated by: Haroon Hartley M.D. on 07/17/2018 at 10:09 Approved by: Haroon Hartley M.D. on 07/17/2018 at 10:10
[2018-07-17] MEDS: CARVEDILOL 12.5 MG TABLET PO ×2 (09:35→21:20)
[2018-07-17] MEDS: ASPIRIN 325 MG TABLET PO (09:35)
[2018-07-17] MEDS: LOSARTAN 50 MG TABLET PO (09:35)
[2018-07-17] MEDS: FUROSEMIDE 40 MG/4 ML VIAL IV (09:35)
[2018-07-17] MEDS: CALCITRIOL 0.25 MCG CAPSULE PO (09:35)
--- NOTE | 2018-07-17 10:46 | CM.IDA ---
DCP Assessment Note: See details below. Pt here 8.21.18- 8.24.18 and DC home to [facility] care at that time, family provided transportation. Awaiting conversation w/dtr Eri; Dr Sherman planning to call her and discuss Hospice referral (?). Following closely. CHAN Lowery Discharge Planning/Care Management CM Discharge Assessment Start: 07/17/18 10:32 Freq: Status: Active Protocol: Document 07/17/18 10:32 JOHNSON (Rec: 07/17/18 10:46 [id number]) Discharge Planning Assessment Assigned Reptile Keeper CHAN Wilkinson DPOA/Assigned Designee Name ELSI Almonte/ DTR Contact Information [phone] Advance Directives? Yes: [facility] facility paperwork indicates: DNR. History Provided By Family Member Medical Record Prior Living Arrangements Assisted Living Comment Memory Care; [facility] P# F# [phone] Household Members caregiver Type of transporation used prior to Relies on Others admit Willing to Return to Facility? Yes Independent with ADL's No: Mod Indp w/o AD Is patient alert and oriented? No: Dementia Needs Assistance With Bathing Grooming Meal Prep Toileting Managing Medications Home Chores / Shopping Comment Dementia, Aphasia Caregiver for Another No Comment Return to NURSING HOME/Memory care Comment Dr Sherman will suggest Hospice Referral to dtr/DPOA based on pt's severe dementia, heart condition and multiple visits to the hospital in the last few months. Barriers to Discharge No Comment None at this time Discharge Plan Assisted Living Facility Transportation Arrangement Family to transport Referrals Initiated None needed Additional Comment Return to Memory care is expected. Dr Sherman to introduce Hospice referral to dtr/DPOA as a compassionate option for pt's care/ DCP Whiteboard Updated in Patient Room with Yes name and ext. # of Reptile Keeper Review Status In Process
--- NOTE | 2018-07-17 11:51 | PM.PN.1 ---
Subjective Date Patient Seen: 07/17/18 Interval history: Patient unable to provide subjective complaints due to advanced dementia. He has had periods of agitation. Exam Vital Signs (past 8 hours): - 07/17/18 06:00 07/17/18 09:24 07/17/18 11:18 Temperature 97 F L 98.1 F 98 F Pulse Rate 85 77 89 Respiratory Rate 20 18 20 Blood Pressure 137/96 H 137/97 H 130/94 H Pulse Oximetry 98 96 96 Oxygen Delivery Method Room Air Narrative Exam Narrative: General: Alert, lying in bed and at this time cooperative Neck: JVD to angle of jaw Lungs: Scattered lower lobe crackles Heart: Irregularly irregular rhythm with systolic and diastolic murmurs Abdomen: Midline surgical scar, epigastric tenderness present, no guarding or rebound Extremities: 3+ pitting edema in lower legs Neuro: Confused, nonfocal Objective Labs Result Diagrams: 07/16/18 13:28 07/17/18 05:12 Labs: Laboratory Results - last 24 hr 07/16/18 07/16/18 07/16/18 13:28 13:28 13:28 WBC 6.6 RBC 4.71 Hgb 14.7 Hct 44.4 MCV 94.1 MCH 31.3 MCHC 33.2 RDW 17.1 H Plt Count 148 L Neut % (Auto) 71.8 Lymph % (Auto) 17.3 L [place] % (Auto) 9.5 Eos % (Auto) 0.4 L Baso % (Auto) 1.0 Neut # (Auto) 4700 PT 19.4 H INR 1.8 H APTT 26 L Sodium 139 Potassium 5.2 H Chloride 104 Carbon Dioxide 23 BUN 52 H Creatinine 2.50 H Estimated GFR 25.5 L BUN/Creatinine Ratio 20.8 Glucose 129 H Lactate Calcium 9.2 Total Bilirubin 2.1 H AST 32 ALT 41 Alkaline Phosphatase 55 Troponin I 0.128 H* B-Natriuretic Peptide Total Protein 6.5 Albumin 3.5 Globulin 3.0 Albumin/Globulin Ratio 1.2 Triglycerides Cholesterol LDL Cholesterol, Calc HDL Cholesterol Procalcitonin Prolactin 22.8 H 07/16/18 07/16/18 07/16/18 13:28 13:28 13:46 WBC RBC Hgb Hct MCV MCH MCHC RDW Plt Count Neut % (Auto) Lymph % (Auto) [place] % (Auto) Eos % (Auto) Baso % (Auto) Neut # (Auto) PT INR APTT Sodium Potassium Chloride Carbon Dioxide BUN Creatinine Estimated GFR BUN/Creatinine Ratio Glucose Lactate 2.8 H Calcium Total Bilirubin AST ALT Alkaline Phosphatase Troponin I B-Natriuretic Peptide 2830.0 H Total Protein Albumin Globulin Albumin/Globulin Ratio Triglycerides 96 Cholesterol 141 LDL Cholesterol, Calc 92 HDL Cholesterol 30 L Procalcitonin Prolactin 07/16/18 07/16/18 07/17/18 15:25 18:15 05:12 WBC RBC Hgb Hct MCV MCH MCHC RDW Plt Count Neut % (Auto) Lymph % (Auto) [place] % (Auto) Eos % (Auto) Baso % (Auto) Neut # (Auto) PT INR APTT Sodium 138 Potassium 5.2 H Chloride 106 Carbon Dioxide 22 BUN 55 H Creatinine 2.50 H Estimated GFR 25.5 L BUN/Creatinine Ratio 22.0 Glucose 93 Lactate 2.4 H Calcium 8.7 Total Bilirubin AST ALT Alkaline Phosphatase Troponin I 0.379 H* B-Natriuretic Peptide Total Protein Albumin Globulin Albumin/Globulin Ratio Triglycerides Cholesterol LDL Cholesterol, Calc HDL Cholesterol Procalcitonin 0.05 Prolactin Assessment & Plan Plan: Assessment/Plan Narrative: 1. Non STEMI, type 2 [place]: Patient ruled in with positive troponin. This is likely demand related ischemia secondary to severe heart failure and atrial fibrillation with RVR. Continue aspirin and management of heart failure and atrial fibrillation rate controlled. 2. Acute on chronic systolic heart failure: He is noncompliant with oral medications due to dementia and refusing to take his pills. He has pleural effusions and peripheral edema. His echo on 06/23/2018 showed LV EF 15-20% with severe dilated LV. Plan: Lasix 80 mg IV every 12 hr. Continue losartan 50 mg daily and carvedilol 12.5 mg twice daily. 3. Chronic atrial fibrillation with RVR: Heart rate controlled with patient back on his carvedilol. 4. Stage IV CKD: Lab stable with creatinine 2.5 range. Check daily on IV Lasix. 5. Epigastric pain, presenting complaint: He has epigastric tenderness on exam. His noncontrast abdominal CT was unrevealing. He may have a peptic ulcer or other cause. He is not candidate for invasive workup such as EGD. Started patient on pantoprazole 40 mg daily. 6. Dementia with behavioral disturbance: Continue daily olanzapine. Also daughter noted he does respond to oral morphine to control agitation. Ordered morphine 10 mg every 4 hr as needed for this reason. 7. Code status and goals of care: He is DNR. Patient has end-stage heart failure, severe chronic kidney disease, advanced dementia with multiple recent admissions due to heart failure. He is good candidate for hospice services. Per discussion with daughter Kallie she would like us to pursue initiation of hospice services with plan for him to [facility] which is a dementia facility in [place]. In meantime, will continue hospital treatment of his heart failure and atrial fibrillation. Quality VTE Deep Vein Thrombosis/Pulmonary Embolism Present on Admission: No
[2018-07-17] MEDS: FUROSEMIDE 100 MG/10 ML VIAL 80 MG IV ×2 (12:21→21:20)
--- NOTE | 2018-07-17 13:08 | CM.DPC ---
DCP Cont: Long conversation w/dtr Eri this morning. Passed along her contact information to Dr Sherman (info in chart is incorrect). Also sent email to admission group to change chart information. Eri: [phone] Yuni: [phone]. According to our conversation: Both dtrs Eri and Yuni work where their fath lives, [employer]. They get to see him on a daily basis. Recently, caring for pt has been more difficult because he is paranoid about the medication being administered and often refuses meds. Dtr knows that pt has been in pain off and on, she thinks he feels confused, scared, and out of control and can become emotionally labile and agitated at home ([facility]). Eri has secured a mtg w/a rep from [facility] for an upcoming date (date unknown) and has an appt w/PCP to discuss ordering a compounded/subdermal medication specifically his mood stabilizer, Zyprexa, and a narcotic like Morphine; which, dtr explains, has significantly improved pt's mood, decreased pain, and allowed pt to sleep in the past. Dtr feels pt has been ready to for quite some time and has been very frustrated he can no communicate his needs well and has become dependent on family and staff for care. Dtr attempting to relieve pt of his discomfort, emotoially and physically but feels at her wits end because he has been consistently refusing meds. Eri plans to be at the hospital this evening. She agrees to aloow this POLICE PILOT to make a referral to [facility] in case they can follow up sooner than [facility]. Dtr intends to take pt home when medically cleared and would love to have Hospice providing services as soon as it's available. Eri appreciates communication about her Dad and requests the staff call her if pt's status changes or agitation increases today. Eri gives the medical staff permission to sedate pt as needed to keep him safe from himself and keep staff safe. Pt also would benefit from sound sleep. Eri explained that when pt was at [facility] in the past, staff allowed him to leave on his own and he was found 6 hours later wondering [facility]. Eri wants to be notified [facility] if pt escalates enough to want to leave hosp. Following closely. Relayed above to Dr Sherman and RN Coordinator Gayle. Then spoke w/Kathrin at [facility]; this conversation was not very productive. Faxed initial clinical. Kathrin was going to arrange a hospice info visit but could not tell this POLICE PILOT when an open intake was available. Also LM w/dtr Eri discussing IMM, need to review initial admission IMM w/her. Aparna Mckeon POLICE PILOT
[2018-07-17] MEDS: OLANZapine ODT 10 MG TAB 5 MG PO (21:20)
[2018-07-17] MEDS: SENNOSIDES 8.6 MG TABLET 17.2 MG PO (21:20)
[2018-07-18] VITALS (10 sets, daily range): BP systolic 117–140; BP diastolic 76–90; PULSE 53–96; RESP 16–22; TEMP 36.3–36.5; O2SAT 92–99
--- NOTE | 2018-07-18 01:01 | PC.NURSE ---
Addendum entered by Quincy Lala R.N. 07/18/18 01:22: 0120: Awake, assisted up to void. Original Note: [employer] Solutions Architect Summary: 0020: Awake, sitting up at side of bed. Assisted to find urinal. Pt voided large amt srinivasa urine. Vital signs stable. IVs in place in lt AC and forearm. Pt back in bed after voiding.
[2018-07-18 05:42] LABS: BUN Creatinine Ratio 23.9 (6-22); Blood Urea Nitrogen 55 mg/dL (9-20); Calcium 8.6 mg/dL (8.4-10.2); Carbon Dioxide 25 mmol/L (22-32); Chloride 104 mmol/L (98-107); Estimated Glomerular Filt Rate 28.1 mL/min (>60); Glucose 91 mg/dL (80-110); HEMOLYSIS < 15 (0-50); Sodium 139 mmol/L (137-145)
[2018-07-18] MEDS: FUROSEMIDE 100 MG/10 ML VIAL 80 MG IV ×2 (06:45→18:30)
[2018-07-18] MEDS: PANTOPRAZOLE 40 MG TABLET PO (06:46)
[2018-07-18] MEDS: CARVEDILOL 12.5 MG TABLET PO ×2 (08:10→21:10)
[2018-07-18] MEDS: LOSARTAN 50 MG TABLET PO (08:10)
[2018-07-18] MEDS: ASPIRIN 325 MG TABLET PO (08:10)
[2018-07-18] MEDS: CALCITRIOL 0.25 MCG CAPSULE PO (08:10)
--- NOTE | 2018-07-18 15:08 | P.PN_ITS ---
Subjective Date Patient Seen: 07/18/18 Interval history: Patient appears very comfortable. He has had very good diuresis with IV Lasix. Exam Vital Signs (past 8 hours): - 07/18/18 08:03 Pulse Rate 81 Respiratory Rate 16 Blood Pressure 117/81 Pulse Oximetry 99 Oxygen Delivery Method Room Air Oxygen Flow Rate 0 Narrative Exam Narrative: General: Alert, lying in bed and at this time cooperative Lungs: Clear to auscultation bilaterally Heart: Irregularly irregular rhythm with systolic and diastolic murmurs Abdomen: Midline surgical scar, nontender, no organomegaly Extremities: Still 3+ pitting edema in lower legs Neuro: Confused, nonfocal Objective Labs Result Diagrams: 07/16/18 13:28 07/18/18 05:22 Labs: Laboratory Results - last 24 hr 07/18/18 05:22 Sodium 139 Potassium 4.0 D Chloride 104 Carbon Dioxide 25 BUN 55 H Creatinine 2.30 H Estimated GFR 28.1 L BUN/Creatinine Ratio 23.9 H Glucose 91 Calcium 8.6 Assessment & Plan Plan: Assessment/Plan Narrative: 1. Non STEMI, type 2 [place]: Patient ruled in with positive troponin. This is likely demand related ischemia secondary to severe heart failure and atrial fibrillation with RVR. Continue aspirin and management of heart failure and atrial fibrillation rate control. 2. Acute on chronic systolic heart failure: He is diuresing well with IV Lasix in hospital. He is noncompliant with oral medications due to dementia and refusing to take his pills. He has pleural effusions and peripheral edema. His echo on 06/23/2018 showed LV EF 15-20% with severe dilated LV. Plan: Continue Lasix 80 mg IV every 12 hr. Continue losartan 50 mg daily and carvedilol 12.5 mg twice daily. Provide additional potassium 20 mEq twice daily while on IV Lasix. 3. Chronic atrial fibrillation with RVR: Heart rate controlled with patient back on his carvedilol. 4. Stage IV CKD: Lab stable with creatinine 2.3 today. Check daily on IV Lasix. 5. Epigastric pain, presenting complaint: Improved since on PPI. He had epigastric tenderness on exam. His noncontrast abdominal CT was unrevealing. He may have a peptic ulcer or other cause. He is not candidate for invasive workup such as EGD. Started patient on pantoprazole 40 mg daily. 6. Dementia with behavioral disturbance: Continue daily olanzapine. Also daughter noted he does respond to oral morphine to control agitation. Ordered morphine 10 mg every 4 hr as needed for this reason. 7. Code status and goals of care: He is DNR. Patient has end-stage heart failure, severe chronic kidney disease, advanced dementia with multiple recent admissions due to heart failure. He is good candidate for hospice services. Per discussion with daughter Kallie she requested for us to pursue initiation of hospice services with plan for him to [facility] which is a dementia facility in [place]. In meantime, will continue hospital treatment of his heart failure and atrial fibrillation. Likely discharge tomorrow, Thursday with hospice outpatient follow-up. Quality VTE Deep Vein Thrombosis/Pulmonary Embolism Present on Admission: No
--- NOTE | 2018-07-18 15:34 | CM.DPC ---
DCP/continued: Reviewed notes. Per MD in AM rounds, patient will most likely be medically stable to return to memory care tomorrow. MD inquiring on status of hospice. HEEL PAINTER updated white board in patient's room. No family at bedside therefore, placed call to listed [facility]/Eri re: plan. Left vm requesting return phone call. In addition, [facility] , spoke with Kathrin. She reports that DPOA had phone conversation with hospice yesterday. Per Kathrin, [facility] has agreed to hospice services at time of discharge. However, Kathrin reports that they currently do not have the nursing staff to start [facility]. Kathrin hopes to know more tomorrow 07-19-18. HEEL PAINTER to confirm with DPOA/daughter that they would like patient to return home i.e. memory care RESIDENTIAL with hospice. Also need to determine if they would like [facility]? Both agencies have been mentioned in d/c planning notes. P: Return to [facility]/memory care tomorrow 07-19-18 with hospice (pending start date) if family in agreement. CHAN Jose
[2018-07-18] MEDS: POTASSIUM CHLORIDE 20 MEQ TAB PO ×2 (17:24→17:25)
[2018-07-18] MEDS: SENNOSIDES 8.6 MG TABLET 17.2 MG PO (21:09)
[2018-07-18] MEDS: OLANZapine ODT 10 MG TAB 5 MG PO (21:09)
[2018-07-19] VITALS (9 sets, daily range): BP systolic 108–144; BP diastolic 77–98; PULSE 74–91; RESP 14–24; TEMP 36.3–36.6; O2SAT 93–99; BMI 23.4
[2018-07-19 06:15] LABS: BUN Creatinine Ratio 23.6 (6-22); Blood Urea Nitrogen 52 mg/dL (9-20); Calcium 8.7 mg/dL (8.4-10.2); Carbon Dioxide 29 mmol/L (22-32); Chloride 102 mmol/L (98-107); Estimated Glomerular Filt Rate 29.6 mL/min (>60); Glucose 82 mg/dL (80-110); HEMOLYSIS 16 (0-50); Potassium 3.8 mmol/L (3.4-5.1); Sodium 139 mmol/L (137-145)
[2018-07-19] MEDS: FUROSEMIDE 100 MG/10 ML VIAL 80 MG IV ×2 (06:19→22:22)
[2018-07-19] MEDS: PANTOPRAZOLE 40 MG TABLET PO (06:19)
[2018-07-19] MEDS: CALCITRIOL 0.25 MCG CAPSULE PO (08:20)
[2018-07-19] MEDS: CARVEDILOL 12.5 MG TABLET PO ×2 (08:20→21:29)
[2018-07-19] MEDS: POTASSIUM CHLORIDE 20 MEQ TAB PO ×2 (08:20→17:51)
[2018-07-19] MEDS: LOSARTAN 50 MG TABLET PO (08:20)
[2018-07-19] MEDS: ASPIRIN 325 MG TABLET PO (08:20)
[2018-07-19] MEDS: SODIUM CHLORIDE 0.9% FLUSH 10 ML IV (09:02)
--- NOTE | 2018-07-19 11:08 | P.PN_ITS ---
Subjective Date Patient Seen: 07/19/18 Time Patient Seen: 10:58 Interval history: Patient has no complaints, very cooperative, diuresing very well with IV Lasix. Exam Vital Signs (past 8 hours): - 07/19/18 06:20 07/19/18 07:44 07/19/18 08:02 Temperature 97.3 F L 97.5 F L Pulse Rate 85 91 H Respiratory Rate 24 15 Blood Pressure 141/97 H 130/98 H Pulse Oximetry 93 94 99 Oxygen Delivery Method Room Air Oxygen Flow Rate 0 Narrative Exam Narrative: General: Alert, lying flat in bed, not in distress Lungs: Clear to auscultation bilaterally Heart: Irregularly irregular rhythm with systolic and diastolic murmurs Abdomen: Midline surgical scar, nontender, no organomegaly Extremities: Improved edema, 1+ right leg and 2+ left leg Neuro: Confused, nonfocal Objective Labs Result Diagrams: 07/16/18 13:28 07/19/18 05:50 Labs: Laboratory Results - last 24 hr 07/19/18 05:50 Sodium 139 Potassium 3.8 Chloride 102 Carbon Dioxide 29 BUN 52 H Creatinine 2.20 H Estimated GFR 29.6 L BUN/Creatinine Ratio 23.6 H Glucose 82 Calcium 8.7 Assessment & Plan Plan: Assessment/Plan Narrative: 1. Non STEMI, type 2 [place]: Patient ruled in with positive troponin. This is likely demand related ischemia secondary to severe heart failure and atrial fibrillation with RVR. Continue aspirin and management of heart failure and atrial fibrillation rate control. 2. Acute on chronic systolic heart failure: He is diuresing well with IV Lasix with net negative 8200 mL fluid balance since admission. Peripheral edema is improving. He has been compliant with oral medications here but reportedly refusing to take pills at [facility]. Echo on 06/23/2018 showed LV EF 15-20% with severe dilated LV. Renal function and lytes stable with aggressive diuresis. Plan: Continue Lasix 80 mg IV every 12 hr for 1 more day. Continue losartan 50 mg daily and carvedilol 12.5 mg twice daily. Provide additional potassium 20 mEq twice daily while on IV Lasix but probably will not require potassium replacement once back on oral Lasix. Patient has had frequent recent admissions for CHF exacerbation. In addition to medication noncompliance, it does appear his oral Lasix is very under dosed based on severity of his LV dysfunction and his advanced kidney disease. Recommend discharging on 80 mg oral Lasix daily. I did go ahead and stop his home Lasix and entered new prescription for 80 mg daily Lasix on his discharge routine. 3. Chronic atrial fibrillation with RVR: Heart rate controlled with patient back on his carvedilol. 4. Stage IV CKD: Renal function stable with creatinine 2.2 today. Check daily on IV Lasix. 5. Epigastric pain, presenting complaint: Improved since on PPI. He had epigastric tenderness on exam. His noncontrast abdominal CT was unrevealing. He may have a peptic ulcer or other cause. He is not candidate for invasive workup such as EGD. Started patient on pantoprazole 40 mg daily during this admission. 6. Dementia with behavioral disturbance: Continue daily olanzapine. Also daughter noted he does respond to oral morphine to control agitation. Ordered morphine 10 mg every 4 hr as needed for this reason but he has not received during this admission. 7. Code status and goals of care: He is DNR. Patient has end-stage heart failure, severe chronic kidney disease, advanced dementia with multiple recent admissions due to heart failure. He is good candidate for hospice services. Per discussion with daughter Kallie she requested for us to pursue initiation of hospice services with plan for him to [facility] which is a dementia facility in [place]. In meantime, will continue hospital treatment of his heart failure and atrial fibrillation. 8. Disposition: Patient with improvement in present heart failure symptoms and could use 1 additional day of IV diuresis. Plan for discharge tomorrow, Thursday. Review discharge plans with his daughter Eri who is in agreement. Also outpatient hospice consult is being arranged. Quality VTE Deep Vein Thrombosis/Pulmonary Embolism Present on Admission: No
--- NOTE | 2018-07-19 14:39 | PC.NURSE ---
Shift summary: Oriented to self. Pleasant and cooperative with care interventions. Impulsive (r/t urinary urgency and frequency), does not call so bed alarm has been on all day. SBA OOB with FWW. Patient denies any difficulty breathing, denies abd pain. Lungs CTA, SpO2 on RA 99%. 3+ edema to BLE's. Able to make needs known, although it's difficult to understand him sometimes. Resting quietly now with eyes closed. Bed alarm on, room door open.
--- NOTE | 2018-07-19 14:54 | CM.DPC ---
DCP/continued: Reviewed chart. No return phone call from daughter/Eri received. Therefore, POWDER COAT PAINTER placed call to daughter to discuss plan. Daughter answered, POWDER COAT PAINTER explained role. Daughter indicates that she had received message yesterday but does not feel like her dad is ready for discharge today. Daughter requesting that patient continue on IV lasix and that edema somewhat resolved prior to release. Daughter requesting telephone number for [employer] which was provided. Daughter also requesting that POWDER COAT PAINTER pass on this information and additional information pertaining to patient to MD in rounds. POWDER COAT PAINTER notified daughter that POWDER COAT PAINTER would request that MD call her directly. Daughter agreeable. Reiterated to daughter that the role of POWDER COAT PAINTER is to secure safe discharge plan. Daughter appreciative but seemed frustrated with process. Daughter confirms that they are interested in hospice services when patient discharges. Daughter has chosen [facility]. Although, telephone intake was done, consents have not been signed. Placed call to Kathrin at hospice and she confirms that they can see patient in the residence tomorrow 07-20-18 at 2:00pm. Spoke again with Dr. Sherman and he confirms that he has spoken with daughter and current plan is for patient to d/c home tomorrow with hospice. Placed additional call to daughter to confirm that she is agreeable to plan. Daughter reports as long as patient's edema continues to resolve she is agreeable for patient to come home tomorrow. Kathrin from hospice will call daughter today to discuss first visit. Dr. Sherman to pass on to hospitalist tomorrow that discharge needs to occur in AM. P: Hopeful that patient will d/c home tomorrow with hospice opening at 2:00pm same day. POWDER COAT PAINTER following closely. CHAN Jose
[2018-07-19] MEDS: SENNOSIDES 8.6 MG TABLET 17.2 MG PO (21:28)
[2018-07-19] MEDS: OLANZapine ODT 10 MG TAB 5 MG PO (21:29)
[2018-07-20 00:19] VITALS: BP 121/95; PULSE 95; RESP 18; TEMP 36.6
[2018-07-20 05:47] VITALS: BP 127/83; PULSE 72; RESP 16; TEMP 36.5; O2SAT 98
[2018-07-20 05:58] LABS: Blood Urea Nitrogen 48 mg/dL (9-20); Calcium 8.7 mg/dL (8.4-10.2); Carbon Dioxide 33 mmol/L (22-32); Chloride 99 mmol/L (98-107); Glucose 90 mg/dL (80-110); HEMOLYSIS < 15 (0-50); Potassium 3.5 mmol/L (3.4-5.1); Sodium 141 mmol/L (137-145)
[2018-07-20] MEDS: PANTOPRAZOLE 40 MG TABLET PO (06:14)
[2018-07-20 07:35] VITALS: BP 123/84; PULSE 81; RESP 14; TEMP 36.6; O2SAT 99
[2018-07-20] MEDS: POTASSIUM CHLORIDE 20 MEQ TAB PO (09:23)
[2018-07-20] MEDS: CALCITRIOL 0.25 MCG CAPSULE PO (09:23)
[2018-07-20] MEDS: LOSARTAN 50 MG TABLET PO (09:23)
[2018-07-20] MEDS: CARVEDILOL 12.5 MG TABLET PO (09:23)
[2018-07-20] MEDS: ASPIRIN 325 MG TABLET PO (09:23)
[2018-07-20] MEDS: SODIUM CHLORIDE 0.9% FLUSH 10 ML IV ×2 (09:26→13:33)
[2018-07-20] MEDS: ACETAMINOPHEN 325 MG TABLET 650 MG PO (09:49)
[2018-07-20 09:53] VITALS: O2SAT 99
--- NOTE | 2018-07-20 10:18 | PC.NURSE ---
Shift summary: Oriented to self only. Often has word-salad when he talks, but is able to follow directions well and answer simple yes/no questions appropriately for the most part. Sat up in chair for breakfast, then back to bed per his request. Denies any difficulty breathing or shortness of breath. Lungs CTA, SpO2 on RA 99-100%. Denies chest pain or palpitations. 2+ pitting edema to BLE's. Diuresing well. C/O pain in his R flank after breakfast, 5/10 on FLACC scale. Medicated with Tylenol per e-mar and placed warm blanket to R flank. He's resting quietly in bed now. Call light in reach, bed alarm.
[2018-07-20 12:05] VITALS: BP 88/54; PULSE 62; RESP 14; TEMP 36.7; O2SAT 96
--- NOTE | 2018-07-20 12:11 | PM.DS.1 ---
History of Present Illness Chief complaint: Side Pain Narrative: The patient is a pleasantly demented 73 y/o male who is unable to provide any history. History is obtained from the records and ED evaluation/conversation with the daughter. The patient has a history of chronic systolic heart failure, atrial fibrillation, and chronic kidney disease. He lives at a facility but has been non compliant with his medications. He was brought in because of confusion and pain. The patient has been pointing to his abdominal scar. He is unable to tell me anything further. He had an EKG which revealed atrial fibrillation with a rapid ventricular response rate. His Troponin was elevated at .128. Dr. Mcbride had a discussion with the daughter who is DPOA and they wanted medical management and not to pursue cardiac catherization or invasive procedures. Patient had a BNP of greater than 2500. He was given 40mg of Lasix, Asa, 100mg of Lovenox and admitted to the hospital. Discharge Providers Date of admission: 07/16/18 16:49 Consults: 07/16/18 20:11 Consult to Dietitian, Adult Routine Comment: also won't take meds Reason For Exam: pt does not eat well at facility or for family. Discharge provider: Conchis Roberto MD Summary Discharge Diagnosis: Acute Systolic Heart Failure Non- STEMI Atrial Fibrillation Hypertension History of CVA Aphasia Hospital Course: Patient was admitted to the hospital for confusion/acute heart failure/elevated Troponin. The patient recieved IV lasix in the hospital with improvement in symptoms. He was alert, awake,and in no acute distress. Family decided to have the patient admitted under the care of hospice at home. He was calm and comfortable and discharged home. Status at Discharge Cognitive/behavioral status at discharge: Confused/Aphasic Functional status at discharge: uses cane/walker Overall status at discharge: patient is back to baseline Time Spent with Patient Less than 30 minutes Exam Vital Signs (past 8 hours): - 07/20/18 05:47 07/20/18 07:35 07/20/18 09:53 Temperature 97.7 F 97.9 F Pulse Rate 72 81 Respiratory Rate 16 14 Blood Pressure 127/83 123/84 Pulse Oximetry 98 99 99 Oxygen Delivery Method Room Air Oxygen Flow Rate 0 Narrative Exam Narrative: Lungs: Decreased but clear to auscultation CV: irregular, irregular nl S1S2 Abd: soft/ non tender Ext 1-2+ edema Objective Labs Result Diagrams: 07/16/18 13:28 07/20/18 05:25 Labs: Laboratory Results - last 24 hr 07/20/18 05:25 Sodium 141 Potassium 3.5 Chloride 99 Carbon Dioxide 33 H BUN 48 H Creatinine 2.00 H Estimated GFR 33.0 L BUN/Creatinine Ratio 24.0 H Glucose 90 Calcium 8.7 Discharge Plan Discharge Plan Discharge Problem: Elevated troponin, CHF (congestive heart failure) Patient Disposition: Assisted Living Other facility: [facility] Under care of provider: KAROLINA Parks Transportation: Private vehicle Discharge comment: Patient to be discharged with plans for home hospice. Hospice to meet with the daughters on I certify the postop hospital custodial care is medically necessary on a continuing basis for any conditions for which he/ she received care during this hospitalization.: No The receiving facility has agreed to accept transfer and provide medical treatment.: No Discharge Med Rec/Prescriptions Prescriptions: New fentanyl [Duragesic] 12 mcg/hr Patch 72 Hour 12 mcg Topical Q72H 30 Days RF: 0 furosemide 80 mg tablet 80 mg PO DAILY Qty: 30 RF: 0 Discontinued furosemide 10 mg/mL Solution 20 mg DAILY RF: 0 No Action aspirin [Ecotrin] 325 MG tablet,delayed release (DR/EC) 325 mg PO QDAY Qty: 0 RF: 0 calcitriol [Rocaltrol] 0.25 MCG capsule 0.25 mcg PO QDAY Qty: 0 RF: 0 losartan 50 mg Tablet 50 mg PO DAILY RF: 0 acetaminophen 325 mg Tablet 650 mg PO Q4H PRN (Reason: fever >101.5 or pain) RF: 0 cholecalciferol (vitamin D3) [Vitamin D3] 2,000 unit Capsule 2,000 unit PO DAILY RF: 0 olanzapine 5 mg Tablet,Disintegrating 5 mg Translingual DAILY RF: 0 Swish And Spit 10 ml PO ACHS RF: 0 carvedilol 12.5 mg tablet 12.5 mg PO QAM RF: 0 morphine 2 mg/mL Solution 10 mg PO Q1H PRN (Reason: Pain, Mild) RF: 0 Discharge Orders: Discharge (Order); Ordered 07/20/18 Ordered By: Conchis Roberto Discharge Data Attending Provider: Conchis Roberto Admit Date/Time: 07/16/18 16:49 Quality VTE Deep Vein Thrombosis/Pulmonary Embolism Present on Admission: No
--- NOTE | 2018-07-20 13:07 | CM.DPNOTE ---
Telephone discussion this afternoon with referenced patient's daughter, Eri: Eri expressed her concern regarding her father's code status and wants to be certain that hospital staff are aware that her father is not to have paddles used on him. I explained to Eri that I was not the environmental restoration planner and not familiar with her father so asked for her patience while I asked questions related to confidentiality prior to providing code status information. In review of Electronic Medical Record Eri is listed as POA; I explained to Eri that it does state on her father's electronic medical record and in progress notes that his status does state, Do Not Resuscitate. In addition, I asked Eri if her father had a POLST form that states her father is a DNR if in the event her father was transferred via ambulance as the paramedics will request to know his code status. Additionally I suggested that the staff at the facility also be made aware of her father's code status upon his return to the facility; Eri expressed appreciation for the information and asked to be transferred to environmental restoration plannerVeronica. I explained Veronica was at lunch but to leave a message. The call was then transferred to allow Eri to leave a message on the assigned environmental restoration planner's phone number;
[2018-07-20] MEDS: fentaNYL 12 MCG/PATCH TOP (13:29)
[2018-07-20 13:38] VITALS: BP 113/71; PULSE 81
--- NOTE | 2018-07-20 16:10 | CM.DPC ---
DCP/continued: Reviewed chart. Spoke with Dr. Roberto this AM. She confirms that patient medically stable for discharge today. Placed call to daughter/Eri she reports that she has cancelled hospice services for today in the residence because she is unclear on whether or not patient can go outpatient for ear appointment? Spoke again with Dr. Roberto and Iv[facility] at [facility] Confirmed with Ivett that patient can go to outside appointment for something not related to hospice diagnosis. RESTORATION OFFICER and Dr. Roberto placed call to daughter together on speaker phone and discussed plan for today. All daughter's questions were answered and she is agreeable to discharge home today with hospice visit on 06-21-18. Per daughter's request, records faxed to patient's residence and hospice. Daughter planning to pick patient up today between 2:00-3:00pm. Received vm from daughter at approximately 1:00pm today indicating that she no longer want [facility]. Instead she would like [facility]. RESTORATION OFFICER placed call to [facility], spoke with Kyle she confirms that she has spoken with daughter and that they can accept referral and see patient in his residence tomorrow 07-21-18. RESTORATION OFFICER asked DEBO/Rocio to fax records to [facility]. RESTORATION OFFICER placed call to Ivett at [facility] the and cancelled services. P: Home today. Patient scheduled to be seen by [facility] tomorrow. CHAN Jose
== END 2018-07-20 15:15 | DRG 280 ==
LOC: ED 16:34 → AC 16:49
PROVIDERS: Internal Medicine; Admitting Provider Internal Medicine; Emergency Provider Emergency Medicine; Visit Provider Internal Medicine
DX: I21.4 Non-ST elevation (NSTEMI) myocardial infarction (principal); I50.23 Acute on chronic systolic (congestive) heart failure; I13.0 Hypertensive heart and chronic kidney disease with heart failure and stage 1 through stage 4 chronic kidney disease, or unspecified chronic kidney disease; N18.4 Chronic kidney disease, stage 4 (severe); N18.9 Chronic kidney disease, unspecified; R10.13 Epigastric pain; I69.920 Aphasia following unspecified cerebrovascular disease; Z91.14 Patient's other noncompliance with medication regimen; F01.50 Vascular dementia, unspecified severity, without behavioral disturbance, psychotic disturbance, mood disturbance, and anxiety; I48.2 Chronic atrial fibrillation; Z66 Do not resuscitate
CPT/HCPCS: 36415; 36591; 71045; 80048; 80053; 80061; 82962; 83605; 83880; 84145; 84146; 84484; 85025; 85610; 85730; 87040; 87086; 93005; 96361; 96374; 99283; 99285; J1650; J1940